=== PATIENT | female | born 1960 | race Caucasian/White ===

== ENCOUNTER 2024-04-27 06:55 | Emergency (ER) | payer OTHER, SELFPAY ==
[2024-04-27 07:06] VITALS: BP 119/65; PULSE 82; RESP 16; TEMP 36; O2SAT 98; BMI 32.8
--- NOTE | 2024-04-27 07:43 | ED.GENADULT ---
HPI - General Adult General Chief complaint: Weakness <Mook Pimentel MD - Last Filed: 04/27/24 07:46> Stated complaint: Weakness, feels faint, fatigue, cold Sx 2wks <Mook Pimentel MD - Last Filed: 04/27/24 07:46> Time Seen by Provider: 04/27/24 06:58 <Mook Pimentel MD - Last Filed: 04/27/24 07:46> History of Present Illness HPI narrative: Patient is a 63-year-old woman who comes in today with several days of general malaise body aches fatigue nonproductive cough and weakness. She states that her symptoms have been worsening since starting chlorthalidone which she is held. She is also on candesartan for blood pressure control. She has had no hemoptysis no overt fevers chills nausea or vomiting. 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 <Mook Pimentel MD - Last Filed: 04/27/24 07:46> Related Data Home medications: Home Medications ?Medication ?Instructions ?Recorded ?Confirmed albuterol 90 mcg/actuation aerosol mcg inhalation 04/27/24 inhaler bupropion HCl 100 mg tablet 450 mg PO DAILY 04/27/24 04/27/24 rvyvegfjfh-ypepjpkjeqhky-soowdvad 1 cap PO Q6H PRN 04/27/24 04/27/24 50 mg-325 mg-40 mg capsule (Esgic) candasortan 16 mg PO DAILY 04/27/24 04/27/24 chloratadone 25 mg PO DAILY 04/27/24 04/27/24 estradiol 1 mg tablet 1.5 mg PO DAILY 04/27/24 04/27/24 fluicasone 100 mcg inhalation DAILY 04/27/24 04/27/24 gabapentin 300 mg capsule 300 mg PO QHS 04/27/24 04/27/24 hydroxazine 25 mg PO .PRN 04/27/24 04/27/24 methocardiol 750 mg PO PRN 04/27/24 omeprazole 40 mg capsule,delayed 40 mg PO DAILY 04/27/24 04/27/24 release rosuvastatin 10 mg tablet (Crestor) 10 mg PO DAILY 04/27/24 04/27/24 singular 10 mg PO .pm 04/27/24 04/27/24 <Mook Pimentel MD - Last Filed: 04/27/24 07:46> Allergies/adverse reactions: Allergies Allergy/AdvReac Type Severity Reaction Status Date / Time No Known Drug Allergies Allergy Verified 04/27/24 07:18 <Mook Pimentel MD - Last Filed: 04/27/24 07:46> Review of Systems Status of ROS: Reports: 10 or more systems reviewed and unremarkable except as noted in History and below <Mook Pimentel MD - Last Filed: 04/27/24 07:46> [facility] Medical History: Medical History Chronic back pain ?M54.9 - Dorsalgia, unspecified (ICD-10) ?G89.29 - Other chronic pain (ICD-10) Restless leg syndrome ?G25.81 - Restless legs syndrome (ICD-10) Cervical endometriosis ?N80.00 - Endometriosis of the uterus, unspecified (ICD-10) Anxiety and depression ?F41.9 - Anxiety disorder, unspecified (ICD-10) ?F32.A - Depression, unspecified (ICD-10) Hypertension ?I10 - Essential (primary) hypertension (ICD-10) Atelectasis, bilateral ?J98.11 - Atelectasis (ICD-10) COVID ?U07.1 - COVID-19 (ICD-10) <Mook Pimentel MD - Last Filed: 04/27/24 07:46> Surgical History: Surgical History History of hysterectomy ?Z90.710 - Acquired absence of both cervix and uterus (ICD-10) <Mook Pimentel MD - Last Filed: 04/27/24 07:46> Social History: Social History Smoking Status: Never smoker Do you use any of these nicotine containing products: None How often do you have a drink containing alcohol: monthly or less How often do you have six or more drinks on one occasion: Less than monthly AUDIT-C Alcohol total score: 2 Non-prescribed substance use: denies use <Mook Pimentel MD - Last Filed: 04/27/24 07:46> Exam Narrative: Exam Narrative: EXAM GENERAL: Patient appears comfortable and well. EYES: No scleral icterus. LYMPH: No supraclavicular or cervical lymphadenopathy. SKIN: Visible skin seen during exam normal or with benign process only. EXT: No dependent lower extremity pedal edema. HEART: Regular rate and rhythm with no murmurs, rubs, or gallops. LUNGS: Clear to auscultation bilaterally with no crackles or wheezes. ABD: Soft, non tender, non distended. PSYCH: Good eye contact, speech is not pressured. <Mook Pimentel MD - Last Filed: 04/27/24 07:46> Const: Vital Signs, click to edit/add: Vital Signs - 24 hr 04/27/24 07:06 Temperature 96.8 F L Pulse Rate [Pulse Oximeter] 82 Respiratory Rate 16 Blood Pressure [Ri ght Upper Arm] 119/65 Pulse Oximetry 98 Oxygen Delivery Me thod Room Air <Mook Pimentel MD - Last Filed: 04/27/24 07:46> Vital Signs, click to edit/add: Vital Signs - 24 hr 04/27/24 07:06 Temperature 96.8 F L Pulse Rate [Pulse Oximeter] 82 Respiratory Rate 16 Blood Pressure [Ri ght Upper Arm] 119/65 Pulse Oximetry 98 Oxygen Delivery Me thod Room Air <Amado Kramer MD - Last Filed: 05/01/24 14:34> Course Course ED Course: Will begin evaluation with a viral swab CBC basic metabolic panel D-dimer troponin EKG chest x-ray and reassess. <Mook Pimentel MD - Last Filed: 04/27/24 07:46> Vital Signs Vital signs: Initial Vital Signs Temperature 96.8 F L 04/27/24 07:06 Temperature Source Temporal Artery Scan 04/27/24 07:06 Pulse Rate 82 04/27/24 07:06 Respiratory Rate 16 04/27/24 07:06 Blood Pressure 119/65 04/27/24 07:06 Blood Pressure Mean 83 04/27/24 07:06 Blood Pressure Position Sitting 04/27/24 07:06 Pulse Oximetry 98 04/27/24 07:06 Oxygen Delivery Method Room Air 04/27/24 07:06 Vital Signs Temperature 96.8 F L 04/27/24 07:06 Pulse Rate 82 04/27/24 07:06 Respiratory Rate 16 04/27/24 07:06 Blood Pressure 119/65 04/27/24 07:06 Pulse Oximetry 98 04/27/24 07:06 Oxygen Delivery Method Room Air 04/27/24 07:06 Temperature 96.8 F L 04/27/24 07:06 Pulse Rate 82 04/27/24 09:06 Respiratory Rate 18 04/27/24 09:06 Blood Pressure 122/69 04/27/24 09:06 Pulse Oximetry 98 04/27/24 07:06 Oxygen Delivery Method Room Air 04/27/24 09:06 <Mook Pimentel MD - Last Filed: 04/27/24 07:46> Initial Vital Signs Temperature 96.8 F L 04/27/24 07:06 Temperature Source Temporal Artery Scan 04/27/24 07:06 Pulse Rate 82 04/27/24 07:06 Respiratory Rate 16 04/27/24 07:06 Blood Pressure 119/65 04/27/24 07:06 Blood Pressure Mean 83 04/27/24 07:06 Blood Pressure Position Sitting 04/27/24 07:06 Pulse Oximetry 98 04/27/24 07:06 Oxygen Delivery Method Room Air 04/27/24 07:06 Vital Signs Temperature 96.8 F L 04/27/24 07:06 Pulse Rate 82 04/27/24 07:06 Respiratory Rate 16 04/27/24 07:06 Blood Pressure 119/65 04/27/24 07:06 Pulse Oximetry 98 04/27/24 07:06 Oxygen Delivery Method Room Air 04/27/24 07:06 Temperature 96.8 F L 04/27/24 07:06 Pulse Rate 82 04/27/24 09:06 Respiratory Rate 18 04/27/24 09:06 Blood Pressure 122/69 04/27/24 09:06 Pulse Oximetry 98 04/27/24 07:06 Oxygen Delivery Method Room Air 04/27/24 09:06 <Amado Kramer MD - Last Filed: 05/01/24 14:34> Medical Decision Making MDM Narrative Medical decision making narrative: Williams -- received this patient at change of shift pending labs. Sodium returns at 129. Is also influenza A positive. Hyponatremia is not necessarily a surprise as I discussed lab results with her. This might be medication effect. See patient discharge plan for further discussion <Amado Kramer MD - Last Filed: 05/01/24 14:34> Lab Data Lab results reviewed: Yes I reviewed the patient's lab results <Amado Kramer MD - Last Filed: 05/01/24 14:34> Labs: Lab Results 04/27/24 04/27/24 Range/Units 08:04 Unknown D-Dimer Quant (PE/DVT) 0.39 (0.00-0.50) ug/ml Sodium 129 L (135-149) mmol/L Potassium 3.4 L (3.6-5.1) mmol/L Chloride 87 L (96-114) mmol/L Carbon Dioxide 34 H (20-32) mmol/L Anion Gap 8 (7-15) mEq/L BUN 20 (7-30) mg/dL Creatinine 0.9 (0.5-1.5) mg/dL Estimated Creat Clear 54.61 Estimated GFR 72 ml/min Glucose 103 (60-115) mg/dL Calcium 10.4 (8.4-10.6) mg/dL Troponin I < 0.01 L (0.01-0.04) ng/mL SARS-CoV-2 (PCR) Negative SARS-CoV-2 (Negative) Influenza Type A (PCR) POSITIVE PCR FLU A A (Negative) Influenza Type B (PCR) Negative PCR FLU B (Negative) RSV (PCR) Negative PCR RSV (Negative) <Mook Pimentel MD - Last Filed: 04/27/24 07:46> Lab Results 04/27/24 04/27/24 Range/Units 08:04 Unknown D-Dimer Quant (PE/DVT) 0.39 (0.00-0.50) ug/ml Sodium 129 L (135-149) mmol/L Potassium 3.4 L (3.6-5.1) mmol/L Chloride 87 L (96-114) mmol/L Carbon Dioxide 34 H (20-32) mmol/L Anion Gap 8 (7-15) mEq/L BUN 20 (7-30) mg/dL Creatinine 0.9 (0.5-1.5) mg/dL Estimated Creat Clear 54.61 Estimated GFR 72 ml/min Glucose 103 (60-115) mg/dL Calcium 10.4 (8.4-10.6) mg/dL Troponin I < 0.01 L (0.01-0.04) ng/mL SARS-CoV-2 (PCR) Negative SARS-CoV-2 (Negative) Influenza Type A (PCR) POSITIVE PCR FLU A A (Negative) Influenza Type B (PCR) Negative PCR FLU B (Negative) RSV (PCR) Negative PCR RSV (Negative) <Amado Kramer MD - Last Filed: 05/01/24 14:34> Discharge Plan Discharge Clinical Impression: Influenza A, Hyponatremia <Mook Pimentel MD - Last Filed: 04/27/24 07:46> Patient Disposition: Home, Self-Care <Mook Pimentel MD - Last Filed: 04/27/24 07:46> Condition: Stable <Mook Pimentel MD - Last Filed: 04/27/24 07:46> Instructions: Hyponatremia (ED), Influenza (DC) <Mook Pimentel MD - Last Filed: 04/27/24 07:46> Additional Instructions: Focus on hydration. Ibuprofen, acetaminophen. Would follow up lab results for recheck maybe in a couple of weeks. Prescribing Tamiflu from [facility]. <Mook Pimentel MD - Last Filed: 04/27/24 07:46> Prescriptions: No Action chloratadone 25 mg PO DAILY candasortan 16 mg PO DAILY bupropion HCl 100 mg tablet 450 mg PO DAILY fluicasone 100 mcg inhalation DAILY singular 10 mg PO .pm omeprazole 40 mg capsule,delayed release(DR/EC) 40 mg PO DAILY gabapentin 300 mg capsule 300 mg PO QHS rosuvastatin [Crestor] 10 mg tablet 10 mg PO DAILY albuterol 90 mcg/actuation aerosol inhalation estradiol 1 mg tablet 1.5 mg PO DAILY Rx Instructions: off 1 week; repeat cycle hydroxazine 25 mg PO .PRN [id number]-[id number]-fqfj [Esgic] 50-325-40 mg capsule 1 cap PO Q6H PRN methocardiol 750 mg PO PRN Patient Comments: muscle spams <Mook Pimentel MD - Last Filed: 04/27/24 07:46> Follow Up/Referrals: Provider,Not a Local [Primary Care Provider] - <Mook Pimentel MD - Last Filed: 04/27/24 07:46> Stand Alone Forms: [facility] Info Instructions <Mook Pimentel MD - Last Filed: 04/27/24 07:46>
--- NOTE | 2024-04-27 07:46 | CRLHL7_ITS ---
For Patients: As a result of the Century Cures Act, medical imaging exams and procedure reports are released immediately into your electronic medical record. You may view this report before your referring provider. If you have questions, please contact your health care provider. Indication: Cough. Technique: Two view(s) of the chest. Comparison: None available. Findings: Normal cardiomediastinal silhouette and pulmonary vasculature. Lungs are well inflated and clear. No focal consolidation, pleural effusion or pneumothorax. No acute osseous abnormality. Right upper quadrant surgical clips. Impression: No acute cardiopulmonary abnormality identified. Dictated by Anahi Norton MD @ 04/27/2024 8:13:00 AM (Electronically Signed)
--- OUTSIDE RECORDS SUMMARY | 2024-04-27 08:01 | XMS_ITS | Clinical Summary ---
Author Organization [facility] Address [address] [place] [id number] Care Team Providers Care Wallpaper Printer Name Role Phone Melba Calderon MD Unavailable [phone] Terrance Bass MD Unavailable [phone] Judson Crowder MD Unavailable Woo Hicks PA-C Primary Care Provider Annemarie Moon MD Unavailable Annemarie Moon MD Unavailable [phone] Allergies Active Allergy Reactions Criticality Noted Date Comments Lisinopril Cough 12/12/2012 Losartan Other (See Comments) 12/12/2012 Insomnia Insomnia Suture 03/31/2010 Medications Medication Sig Dispensed Refills Start Date End Date Status albuterol (ALBUTEROL) 108 (90 BASE) MCG/ACT inhalerIndications:I ntermittent asthma,Major depression in complete remission (H),Headache(784.0), Allergic rhinitis, cause unspecified,Hypercho lesterolemia,Esophag eal reflux,Symptomatic menopausal or female climacteric states,Sciatica,Rout ine general medical examination at a health care facility,Hyperlipide kimi LDL goal <130,Benign hypertension,Need for mhlovsmpvp-wckingi-z ertussis (Tdap) vaccine, adult/adolescent,Uns pecified episodic mood disorder,Obesity Inhale 1-2 puffs into the lungs every 4 hours as needed 1 Inhaler 11 07/03/2013 Active Respiratory Therapy Supplies (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 Active vilazodone (VIIBRYD) 20 MG TABS tablet Take 20 mg by mouth daily. 01/17/2023 Active albuterol (PROAIR HFA/PROVENTIL HFA/VENTOLIN HFA) 108 (90 Base) MCG/ACT inhalerIndications:M ild intermittent asthma without complication Inhale 2 puffs into the lungs every 6 hours as needed for shortness of breath, wheezing or cough 18 g 3 06/30/2023 Active buPROPion (WELLBUTRIN XL) 300 MG 24 hr tabletIndications:Re current major depressive disorder, in full remission (H) Take 1 tablet (300 mg) by mouth daily 90 tablet 3 06/30/2023 Active estradiol (ESTRACE) 1 MG tabletIndications:Sy mptomatic menopausal or female climacteric states Take 1.5 tablets (1.5 mg) by mouth daily 135 tablet 06/30/2023 Active clindamycin (CLEOCIN T) 1 % external lotion APPLY A THIN LAYER TO AFFECTED AREA ON FACE AND TRUNK 1-2X DAILY, ONGOING. 09/11/2023 Active metroNIDAZOLE (METROCREAM) 0.75 % external cream APPLY A THIN LAYER TO AFFECTED AREA 1-2X DAILY, ONGOING. 08/21/2023 Active rosuvastatin (CRESTOR) 10 MG tabletIndications:Hy perlipidemia LDL goal <130 Take 1 tablet (10 mg) by mouth daily 90 tablet 3 03/02/2024 Active butalbital-acetamino phen-caffeine (ESGIC) 50-325-40 MG tabletIndications:Ep isodic tension-type headache, not intractable Take 1 tablet by mouth every 4 hours as needed for pain 60 tablet 03/02/2024 Active chlorthalidone (HYGROTON) 25 MG tabletIndications:Be nign hypertension Take 1 tablet (25 mg) by mouth daily. 90 tablet 1 03/28/2024 Active fluticasone (ARNUITY ELLIPTA) 100 MCG/ACT inhalerIndications:M ild intermittent asthma without complication Inhale 1 puff into the lungs daily. 3 each 3 03/28/2024 Active montelukast (SINGULAIR) 10 MG tabletIndications:Mi ld intermittent asthma without complication,Seasona l allergic rhinitis due to other allergic trigger Take 1 tablet (10 mg) by mouth at bedtime. 90 tablet 3 03/28/2024 Active methocarbamol (ROBAXIN) 750 MG tabletIndications:Bi lateral sciatica Take 1 tablet (750 mg) by mouth nightly as needed for muscle spasms. 90 tablet 03/28/2024 Active candesartan (ATACAND) 16 MG tabletIndications:Be nign hypertension Take 1 tablet (16 mg) by mouth daily. 90 tablet 1 03/28/2024 Active omeprazole (PRILOSEC) [address] capsuleIndications:G astroesophageal reflux disease with esophagitis without hemorrhage Take 1 capsule (40 mg) by mouth daily. 90 capsule 3 03/28/2024 Active gabapentin (NEURONTIN) 300 MG capsuleIndications:R estless legs syndrome (RLS) Take 1 capsule (300 mg) by mouth daily. 90 capsule 3 03/28/2024 Active buPROPion (WELLBUTRIN XL) 150 MG 24 hr tabletIndications:Re current major depressive disorder, in full remission (H) Take 1 tablet (150 mg) by mouth every morning. In addition to 300mg for a total of 450mg total 90 tablet 03/28/2024 Active Active Problems Problem Noted Date Diagnosed Date LLUVIA (generalized anxiety disorder) 05/14/2022 History of COVID-19 07/29/2020 COVID-19 virus infection 06/25/2020 Overview: COVID Pneumonia per CT Chest 06/16/20. Advised to repeat imaging in 3-6 months. Malignant neoplasm of skin 09/08/2016 Overview: Right upper chest, BCC Mohs 2011 Anxiety 06/18/2015 Menopausal state 02/26/2014 Plantar fasciitis 01/04/2014 Cataract 08/07/2013 Benign hypertension 11/03/2012 Obesity 02/04/2012 Intermittent asthma 07/01/2011 Major depressive disorder, recurrent episode, mo derate 07/07/2010 Shoulder impingement syndrome 05/18/2010 Overview: S/p right shoulder subacromial decompression and acromioclavicular joint resection DOS 04/08/10 HYPERLIPIDEMIA LDL GOAL <130 05/17/2010 Hypercholesterolemia 07/27/2009 Backache 10/25/2006 Overview: Problem list name updated by automated process. Provider to review Displacement of lumbar inter vertebral disc without myelopathy 11/11/2005 Overview: Right L4-5 microdiskectomy Mastodynia 08/07/2002 Allergic rhinitis Overview: Problem list name updated by automated process. Provider to review Esophageal reflux Resolved Problems Problem Noted Date Diagnosed Date Resolved Date MDD (recurrent major depress belkis disorder) in remission 07/29/2020 05/15/2022 Neck pain 12/21/2012 02/15/2013 Sciatica 10/25/2006 07/07/2010 Headache 08/07/2002 02/15/2013 Overview: Problem list name updated by automated process. Provider to review Depressive disorder, not elsewhere classified 08/07/19 03 07/07/2010 Encounters Date Type Department Care Team Description 04/26/2024 MyC Medical Advice [facility] [address] [place] [phone] Woo Hicks PA-C Medication Question 03/28/2024 8:00 AM CDT Office Visit [facility] [address] [place] [address] [address] [place] [phone] Woo Hicks PA-C Recurrent major depressive disorder, in full remission (H); Benign hypertension; Mild intermittent asthma without complication; Seasonal allergic rhinitis due to other allergic trigger; Gastroesophageal reflux disease with esophagitis without hemorrhage; Bilateral sciatica; Restless legs syndrome (RLS) 03/28/2024 Travel 03/23/2024 Refill [facility] [address] [place] [address] [address] [place] [phone] Woo Hicks PA-C Medication Refill 03/22/2024 Refill [facility] [address] [address] [place] [phone] Woo Hicks PA-C Medication Refill 03/21/2024 12:34 PM CDT - 03/21/2024 11:59 PM CDT Hospital Encounter [facility] [address] [place] [phone] Annemarie Moon MD Chest pain, unspecified type; Elevated blood pressure reading with diagnosis of hypertension; 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 (H) Discharge Disposition: Home or Self Care 03/21/2024 Travel 03/08/2024 12:50 PM CDT Office Visit [facility] [address] [place] [phone] Annemarie Moon MD Chest pain, unspecified type; Elevated blood pressure reading with diagnosis of hypertension; 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 (H) 03/08/2024 Travel 03/03/2024 Travel 03/02/2024 8:00 AM CDT Office Visit [facility] [address] [place] [address] [place] [phone] Woo Hicks PA-C Need for vaccination (Primary Dx); Episodic tension-type headache, not intractable; Benign hypertension; Hyperlipidemia LDL goal <130 03/02/2024 Travel 02/29/2024 2:49 PM CDT - 02/29/2024 11:59 PM CDT Hospital Encounter [facility] [address] [place] [phone] Woo Hicks PA-C Chest pain, unspecified type; Elevated blood pressure reading with diagnosis of hypertension Discharge Disposition: Home or Self Care 02/29/2024 Travel 02/28/2024 Telephone [facility] [address] [facility] [address] [place] [phone] Unknown, Provider Appointment ([facility] or [facility] ) 02/27/2024 1:21 PM CDT - 02/27/2024 5:05 PM CDT Emergency [facility] [address] [place] [phone] Sobia Guzman MD Chest pain, unspecified type; Hepatic steatosis; Elevated blood pressure reading with diagnosis of hypertension Discharge Disposition: Home or Self Care 02/27/2024 Travel 02/27/2024 Telephone [facility] [address] [place] [phone] None Chest Pain 02/18/2024 Refill [facility] [address] [place] [address] [address] [place] [phone] Woo Hicks PA-C Medication Refill from Last 3 Months Immunizations Name Administration Dates Next Due COVID-19 MONOVALENT 12+ (Pfizer) 04/20/2021,07/18,07/14/2020 Flu, Unspecified 03/04/2016, 5,04/10/2012,2010,05/18/2010,05/07/2009,04/17/2007,1 [id number] Novel Flu- Nasal 05/07/2009 Influenza (H1N1) 05/07/2009 Influenza (IIV3) PF 04/10/2012, 1,05/18/2010,2008,04/17/2007,05/01/1992 Influenza Intranasal Vaccine 05/07/2009 Influenza Vaccine >6 months,quad, PF 06/2023,03/06/2020,04/10/2018,2016,03/09/2016,04/17/2015,04/10/2012,1 ,05/18/2010,05/07/2009, 007,05/01/1992 Influenza Vaccine, 6+MO IM (QUADRIVALENT W/PRESERVATIVES) 03/06/2020,04/17/2019 Influenza, seasonal, injectable, PF 05/04/2022 Mantoux Tuberculin Skin Test 11/08/2005,11/09/19 06 Pneumococcal 20 valent Conju gate (Prevnar 20) 02/02/2022,01/28/2022 TD,PF 7+ (Tenivac) 10/25/2006 TDAP (Adacel,Boostrix) 03/02/2024,02/26/2014 TDAP Vaccine (Adacel) 07/03/2013 Td (Adult), Adsorbed 10/25/2006 Zoster recombinant adjuvante d (SHINGRIX) 04/10/2018,01/02/2018 Family History Medical History Relation Comments C.A.D. Brother 1 Heart Disease Brother 2 mi C.A.D. Brother 3 Hyperlipidemia Brother 4 Hypertension Brother 4 Cerebrovascular Disease Father EYE* Father Heart Disease Father 8 vessel bypass Hyperlipidemia Father Hypertension Father Psychotic Disorder Maternal Grandmother depressi on Cancer Mother gastric Hyperlipidemia Mother Hypertension Mother Neurologic Disorder Mother polio Hyperlipidemia Sister 1 Hypertension Sister 1 Myocardial Infarction Sister 1 No Known Problems Sister 2 Relation Status Comments Brother 1 Brother 2 Alive Brother 3 Alive Brother 4 Alive Father Maternal Grandmother Mother Sister 1 Alive Sister 2 Alive Social History Tobacco Use Types Packs/Day Years Used Date Smoking Tobacco: Never Passive Smoke Exposure: Past Smokeless Tobacco: Never Tobacco Cessation:Counseling Given: Not Answered Alcohol Use Standard Drinks/Week Comments Yes 1.7 (1 standard drink = 0.6 oz p ure alcohol) rare PHQ-2 Answer Date Recorded PHQ-2 Score 3 03/28/2024 Adolescent Education Answer Date Record ed Getting School Help Needed Not on file 04/12 Sex and Gender Information Value Date Recorded Sex Assigned at Not on file Gender Identity Not on file Sexual Orientation Not on file Last Filed Vital Signs Vital Sign Reading Time Taken Comments Blood Pressure 112/72 03/28/2024 8:06 AM CDT Pulse 76 03/28/2024 8:06 AM CDT Temperature 36.3 ??C (97.4 ??F) 03/28/2024 8:06 AM CD T Respiratory Rate 20 03/28/2024 8:06 AM CDT Oxygen Saturation 97% 03/08/2024 12:43 PM CDT Inhaled Oxygen Concentration - - Weight 91.6 kg (202 lb) 03/28/2024 8:06 AM CDT Height 167.6 cm (5' 6) 03/28/2024 8:06 AM CDT Body Mass Index 32.6 03/28/2024 8:06 AM CDT Plan of Treatment Health Maintenance Due Date Last Done Comments ANNUAL REVIEW OF HM ORDERS 1961 CT COLONOGRAPHY 1961 FIT 1961 FLEX SIG 1961 sDNA (Cologuard) 1961 HIV SCREENING 1976 HEPATITIS C SCREENING 1979 YEARLY PREVENTIVE VISIT 07/03/2014 07/03/20 13, 07/07/2010, 05/13/2009, Additional history exists COVID-19 Vaccine ( season) 2024 01/28/2022, 04/20/2021, 08/01/2020, Additional history exists INFLUENZA VACCINE (#1) 2024 , 05/04/2022, 03/06/2020, Additional history exists ASTHMA ACTION PLAN 06/30/2024 06/30/2023, 0 11/28/2012, 04/10/2012 RSV VACCINE (1 - Risk 60-74 years 1-dose series) 06/30/2024 Postponed fro m 2021 (Other) MAMMO SCREENING 07/15/2024 07/15/2023, 12/16, 12/30/2021, Additional history exists ASTHMA CONTROL TEST 09/25/2024 03/28/2024, 06/30/2023, 06/25/2022, Additional history exists PHQ-9 09/25/2024 03/28/2024, 06/17, 10/29/2022, Additional history exists LIPID 03/08/2025 03/08/2024, 06/18, 07/03/2013, Additional history exists BMP 03/28/2025 03/28/2024, 02/16, 02/27/2024, Additional history exists GLUCOSE 03/28/2027 03/28/2024, 02/16, 02/27/2024, Additional history exists ADVANCE CARE PLANNING 06/17/2027 06/17/2022, 022 COLONOSCOPY 06/29/2029 06/29/2022, 04/28/2012 COLORECTAL CANCER SCREENING 06/29/2029 DTAP/TDAP/TD IMMUNIZATION (4 - Td or Tdap) 03/02/2034 03/02/2024, 02/26/2014, 07/03/2013, Additional history exists PAP Discontinued 01/06/2004, 06/10/1987 MIGRAINE ACTION PLAN Completed 04/10/2012 DEPRESSION ACTION PLAN Completed 11/28/2012 ZOSTER IMMUNIZATION Completed 04/10/2018, 8 Pneumococcal Vaccine: Pediatrics (0 to 5 Years) and At-Risk Patients (6 to 64 Years) Completed 02/02/2022, 01/28/2022 HPV IMMUNIZATION Aged Out No longer e ligible based on patient's age to complete this topic MENINGITIS IMMUNIZATION Aged Out No l onger eligible based on patient's age to complete this topic RSV MONOCLONAL ANTIBODY Aged Out No l onger eligible based on patient's age to complete this topic Procedures Procedure Name Priority Date/Time Associated Diagnosis Comments BASIC METABOLIC PANEL (BFP) Routine 03/28/2024 11:30 AM CDT Benign hypertension UT COLLECTION VENOUS BLOOD VENIPUNCTURE Routine 03/28/2024 8:55 AM CDT Benign hypertension CT CORONARY ARTERY ANGIO W CALCIUM SCORE STAT 03/21/2024 1:38 PM CDT Chest pain, unspecified type Elevated blood pressure reading with diagnosis of hypertension 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 (H) RADIOLOGIST CONSULT FOR CARDIOLOGY STAT 03/21/2024 1:38 PM CDT Chest pain, unspecified type Elevated blood pressure reading with diagnosis of hypertension 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 (H) TSH WITH FREE T4 REFLEX Routine 03/08/2024 1:30 PM CDT Elevated blood pressure reading with diagnosis of hypertension 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 (H) LIPID REFLEX TO DIRECT LDL PANEL Routine 03/08/2024 1:30 PM CDT Elevated blood pressure reading with diagnosis of hypertension 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 (H) BASIC METABOLIC PANEL Routine 03/08/2024 1:30 PM CDT Elevated blood pressure reading with diagnosis of hypertension 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 (H) ECHO COMPLETE YUE 02/29/2024 3:49 PM CDT Chest pain, unspecified type Elevated blood pressure reading with diagnosis of hypertension TROPONIN T, HIGH SENSITIVITY STAT 02/27/2024 3:[address] AORTIC SURVEY W CONTRAST STAT 02/27/2024 3:33 PM CDT EKG 12-LEAD, TRACING ONLY STAT 02/27/2024 1:46 PM CDT CBC WITH PLATELETS & DIFFERENTIAL STAT 02/27/2024 1:30 PM CDT CBC WITH PLATELETS AND DIFFERENTIAL STAT 02/27/2024 1:30 PM CDT TROPONIN T, HIGH SENSITIVITY STAT 02/27/2024 1:30 PM CDT BASIC METABOLIC PANEL STAT 02/27/2024 1:30 PM CDT EXTRA PURPLE TOP TUBE STAT 02/27/2024 1:30 PM CDT EXTRA GREEN TOP (LITHIUM HEPARIN) TUBE STAT 02/27/2024 1:30 PM CDT EXTRA RED TOP TUBE STAT 02/27/2024 1: 30 PM CDT EXTRA BLUE TOP TUBE STAT 02/27/2024 1 :30 PM CDT EXTRA TUBE STAT 02/27/2024 1:30 PM CDT EKG 12-LEAD COMPLETE W/READ - CLINICS Routine 02/27/2024 12:27 PM CDT Chest pain MA SCREENING BILATERAL W/ JEROME Routine 07/15/2023 Encounter for screening mammogram for breast cancer ASTHMA ACTION PLAN Routine 06/30/2023 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 Mild intermittent asthma without complication COLONOSCOPY Routine 04/28/2012 HCL PAP THIN LAYER SCREEN Routine 01/06/2004 12:00 AM CDT Routine Medical Exam Headache Depressive Disorder Nec Precordial Pain Mastodynia from Last 3 Months or Most Recently Relevant to Health Maintenance Results * (ABNORMAL) Basic Metabolic Panel (BFP) (03/28/2024 11:30 AM CDT) Carbon Dioxide 29.8 20 - 32 mmol/L BFP INTERNAL Creatinine 1.00 0.60 - 1.30 mg/dL BFP INTERNAL Glucose 95 60 - 99 mg/dL BFP INTERNAL Sodium 134.9(A) 135 - 146 mmol/L BFP INTERNAL Comment:ran twice Potassium 3.82 3.5 - 5.3 mmol/L BFP INTERNAL Chloride 98.1 98 - 110 mmol/L BFP INTERNAL Urea Nitrogen 17 7 - 25 mg/dL BFP INTERNAL Calcium 10.0 8.6 - 10.3 mg/dL BFP INTERNAL BUN/Creatinine Ratio 17 6 - 32 BFP INTERNAL Blood 03/28/2024 11:3 0 AM CDT Woo Hicks PA-C LAB - NON-BEAKER BLO OD LABS BFP INTERNAL * Radiologist Consult For Cardiology (03/21/2024 1:38 PM CDT) Anatomical Region Laterality Modality Computed Tomogra phy, Ultrasound 03/21/2024 1:38 PM CDT Impressions 03/21/2024 1:49 PM CDT IMPRESSION: ?? 1. ??Hepatic steatosis. 2. ??Please refer to professional shopper's dictation for the cardiac CT report. 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 COMPARISON: CT 02/27/2024 FINDINGS: ?? LIMITED CHEST: Bilateral dependent atelectasis. LIMITED MEDIASTINUM: Negative. LIMITED UPPER ABDOMEN: Hepatic steatosis. Procedure Note Johann Nguyen MD - 03/21/2024 OVERREAD: DETAILED [facility] RADIOLOGY EXTRACARDIAC OVERREAD OF CARDIAC CT LOCATION: [facility] DATE: 03/21/2024 INDICATION: Chest pain, unspecified type, Elevated blood pressure readingwith diagnosis of hypertension, Coronary artery disease involving nativecoronary artery 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 (H24) TECHNIQUE: Dose reduction techniques were used. COMPARISON: CT 02/27/2024 FINDINGS: LIMITED CHEST: Bilateral dependent atelectasis. LIMITED MEDIASTINUM: Negative. LIMITED UPPER ABDOMEN: Hepatic steatosis. IMPRESSION: 1. Hepatic steatosis. 2. Please refer to professional shopper's dictation for the cardiac CT report. Annemarie Moon MD IMG DIAGNOSTIC IMAGI NG ORDERABLES * CT Coronary Artery Angio w Calcium Score (03/21/2024 1:38 PM CDT) Agatston Score of Left Main 0 RADIANT Agatston Score of the Left Anterior Descending 4 RADIANT Agatston Score of Circumflex 0 RADIANT Agatston Score of Right Coronary Artery 0 RADIANT Total Score 4.00 RADIANT BSA 0.00 m2 RADIANT Anatomical Region Laterality Modality Chest, SUBRAD CT BODY, UMP CT CHEST Computed Tomography, Ultrasound Narrative 03/21/2024 2:35 PM CDT A calcium score in this range places the individual in the 25th percentile when compared to an age and gender matched control group and implies a low risk of cardiac events in the next ten years (less than 1% per year). Angiography: LM normal LAD normal Circ normal RCA normal Non coronary: Normal LV size, function and no WMA No mass/thrombus in GLORIA, LV or PA Normal aortic valve Normal aorta Normal pericardium Imp Normal coronary artery anatomy Calcuim score 4 [address] the individual in the 25th percentile when compared to an age and gender matched control group and implies a low risk of cardiac events in the next ten years (less than 1% per year). Technical Details TECHNIQUE: {CCTA TECHNICAL DETAILS GATING METHOD HE} gated CT scanning of the heart with and without intravenous contrast was performed on a Siemens Definition Flash CT scanner Isovue 370. Sequential scanning was performed for coronary calcium evaluation. Spiral protocol for coronary CT angiography was performed after administering 0.4mg of sublingual nitroglycerin. 63. Pulse range 50% - 70% of the cardiac phase. The imaging protocol was individualized to minimize radiation exposure. Image post processing was performed on a [employer] workstation. This study was performed after discussion of the goals, risk benefits and alternatives of the procedure. Risks discussed included the risk of contrast injection and diagnostic x-ray exposure. The best reconstructions were obtained at 71% of the diastolic phase and 45% of the systolic phase. Left Ventricle Normal left ventricular cavity size, wall thickness, mass and shape. Right Ventricle Normal cavity size. Left Atrium No left atrial mass or thrombus.Normal cavity size. Patent foramen ovale not present. No interatrial septal defect present. Right Atrium Normal cavity size. Mitral Valve Normal valve structure. Aortic Valve Tricuspid aortic valve. Pulmonic Valve Normal valve structure. Pulmonary Artery Normal pulmonary artery and venous anatomy. All pulmonary veins draining into the left atrium. Noncardiac Please note: Radiology review for incidental non cardiac findings will be under separate report by the radiologist. Calcium Scoring The total Agatston score is 4. A calcium score in this range places the individual in the 25th percentile when compared to an age and gender matched control group and implies a low risk of cardiac events in the next ten years (less than 1% per year). Coronary Findings Diagnostic Dominance: Right Left Anterior Descending: Ost LAD to Mid LAD lesion has no luminal stenosis. Left Circumflex: Ost Cx to Dist Cx lesion has no luminal stenosis. Right Coronary Artery: Prox RCA to Dist RCA lesion has no luminal stenosis. Intervention No interventions have been documented. Calcium Score Additonal Info BACKGROUND A coronary artery calcium (CAC) score is a measurement of the amount of calcium (hard plaque) in the tomlin of the arteries that supply the heart muscle. Numerous studies have indicated that this test is a reliable measure of risk for adverse cardiovascular events, such as heart attack and stroke. MANAGEMENT The [place] [employer] [employer] (AHA/ACC) 2018 Guideline on the Management of Blood Cholesterol states: If CAC is zero, treatment with statin therapy may be withheld or delayed, except in certain very high-risk individuals such as cigarette smokers, those with diabetes mellitus, and those with a strong family history of premature atherosclerotic disease. A CAC score of 1 to 99 favors statin therapy, especially in those greater than or equal to 55 years of age. For any patient, if the CAC score is greater than or equal to100 Agatston units or greater than or equal to 75th percentile, statin therapy is indicated unless otherwise deferred by the outcome of clinician-patient risk discussion. The Society of Cardiovascular CT (SCCT) CAC guideline recommends the following: CAC score 0: statin is generally not recommended CAC score 1-99: moderate-intensity statin generally recommended CAC score 100-299: moderate to high-intensity statin + Aspirin 81mg CAC score >300: high intensity statin + Aspirin 81mg GENERAL RECOMMENDATIONS Adoption and maintenance of a healthy lifestyle is recommended for all people. This should include regular, appropriate exercise and observance of a proper diet, to ensure balanced nutrition and weight control. Tobacco use should be avoided. Cholesterol has been linked to coronary atherosclerosis, and we strongly encourage adhering to the recommendations of the 2018 ACC/AHA guidelines on the Management of Blood Cholesterol. For primary prevention, these include calculation of 10-year ASCVD risk and initiation of statin therapy based on estimated ASCVD risk and LDL cholesterol. The CRAVEN risk score, which combines traditional risk factors and CAC, is available online on the CRAVEN website (https://www.craven-nhlbi.org/MESACHDRisk/MesaRiskScore/RiskScore.aspx). (Marvin HAWKINS, et al. J Am Anette Cardiol. 2015 Apr 29;66(15):1643-53.) However, note that these are general recommendations only, and as with all such matters, the personal physician should be consulted regarding recommendations appropriate for the individual. If further guidance is needed, you can schedule an appointment with one of our Preventive Cardiologists ([email or web address]). References: 1. 2018 AHA/ACC/AACVPR/AAPA/ABC/ACPM/ADA/AGS/APhA/ASPC/NLA/PCNA Guideline on the Management of Blood Cholesterol 2. CAC-DRS: Coronary Artery Calcium Data and Reporting System. An expert consensus document of the Society of Cardiovascular Computed Tomography (SCCT) Annemarie Moon MD IMG CT ORDERABLES * TSH with free T4 reflex (03/08/2024 1:30 PM CDT) TSH 1.91 0.30 - 4.20 uIU/mL 03/08/2024 10:29 PM CDT [facility] Blood STRUCTURE OF LEFT UPPER LIMB / Unknown Venipuncture / Unknown 03/08/2024 1:30 PM CDT 03/08/2024 1:30 PM CDT Annemarie Moon MD LAB - BLOOD ORDERABL ES [facility] [place] [facility] [address] [facility], [address] [place] [id number] * (ABNORMAL) Lipid panel reflex to direct LDL Fasting (03/08/2024 1:30 PM CDT) Cholesterol 233(H) <200 mg/dL 03/08/2024 10:29 PM CDT [facility] Triglycerides 85 <150 mg/dL 03/08/2024 10:29 PM CDT [facility] Direct Measure HDL 105 >=50 mg/dL 03/08/2024 10:29 PM CDT [facility] LDL Cholesterol Calculated 111(H) <=100 mg/dL 03/08/2024 10:29 PM CDT [facility] Non HDL Cholesterol 128 <130 mg/dL 03/08/2024 10:29 PM CDT [facility] Patient Fasting > 8hrs? Yes 03/08/2024 10:29 PM CDT [facility] Blood STRUCTURE OF LEFT UPPER LIMB / Unknown Venipuncture / Unknown 03/08/2024 1:30 PM CDT 03/08/2024 1:30 PM CDT Narrative [facility] - 03/08/2024 10:29 PM CDT Cholesterol Desirable: ??<200 mg/dL Triglycerides Normal: ??Less than 150 mg/dL Borderline High: ??150-199 mg/dL High: ??200-499 mg/dL Very High: ??Greater than or equal to 500 mg/dL Direct Measure HDL Female: ??Greater than or equal to 50 mg/dL Male: ??Greater than or equal to 40 mg/dL LDL Cholesterol Desirable: ??<100mg/dL Above Desirable: ??100-129 mg/dL Borderline High: ??130-159 mg/dL High: ??160-189 mg/dL Very High: ??>= 190 mg/dL Non HDL Cholesterol Desirable: ??130 mg/dL Above Desirable: ??130-159 mg/dL Borderline High: ??160-189 mg/dL High: ??190-219 mg/dL Very High: ??Greater than or equal to 220 mg/dL Annemarie Moon MD LAB - BLOOD ORDERABL ES [facility] [address] [facility], [address] [address] * (ABNORMAL) Basic metabolic panel (03/08/2024 1:30 PM CDT) Only the most recent of2 resultswithin the time period is included. Sodium 139 135 - 145 mmol/L 03/08/2024 10:29 PM CDT [facility] Potassium 3.5 3.4 - 5.3 mmol/L 03/08/2024 10:29 PM CDT [facility] Chloride 97(L) 98 - 107 mmol/L 03/08/2024 10:29 PM CDT [facility] Carbon Dioxide (CO2) 29 22 - 29 mmol/L 03/08/2024 10:29 PM CDT [facility] Anion Gap 13 7 - 15 mmol/L 03/08/2024 10:29 PM CDT [facility] Urea Nitrogen 19.5 8.0 - 23.0 mg/dL 03/08/2024 10:29 PM CDT [facility] Creatinine 0.94 0.51 - 0.95 mg/dL 03/08/2024 10:29 PM CDT [facility] GFR Estimate 68 >60 mL/min/1.7 3m2 03/08/2024 10:29 PM CDT [facility] Comment:eGFR calculated usin 2020 CKD-EPI equation. Calcium 10.4 8.8 - 10.4 mg/dL 03/08/2024 10:29 PM CDT [facility] Comment:Reference intervals for this test were updated on 01/31/2024 to reflect our healthy population more accurately. There may be differences in the flagging of prior results with similar values performed with this method. Those prior results can be interpreted in the context of the updated reference intervals. Glucose 90 70 - 99 mg/dL 03/08/2024 10:29 PM CDT [facility] Patient Fasting > 8hrs? Yes 03/08/2024 10:29 PM CDT [facility] Blood STRUCTURE OF LEFT UPPER LIMB / Unknown Venipuncture / Unknown 03/08/2024 1:30 PM CDT 03/08/2024 1:30 PM CDT Annemarie Moon MD LAB - BLOOD ORDERABL ES [facility] Lab [address] [facility], [address] * ECHO COMPLETE (02/29/2024 3:49 PM CDT) LVEF 60-65% CARDIOLOGY RESULTS Anatomical Region Laterality Modality Echocardiography 02/29/2024 2:59 PM CDT Narrative 02/29/2024 4:00 PM CDT [id number]^NIGHAT^GENEVIEVE^RUDI [facility] [address] [place] [address] Name: JAMISON KING : 1960 Study Date: 02/29/2024 02:59 PM Age: 63 yrs Gender: Female Patient Location: [facility] Reason For Study: Chest pain, unspecified type, Elevated blood pressure reading wi Ordering Physician: GENEVIEVE DISLA Referring Physician: SOBIA GUZMAN Performed By: Ellen Oliveros BSA: 2.0 m2 Height: 66 in Weight: 205 lb HR: 71 Procedure Echocardiogram with two-dimensional, color and spectral Doppler performed. Interpretation Summary Global and regional left ventricular function is normal with an EF of 60-65%. Right ventricular function, chamber size, wall motion, and thickness are normal. Pulmonary artery systolic pressure cannot be assessed. No significant valvular abnormalities present. The inferior vena cava is normal. No pericardial effusion is present. There is no prior study for direct comparison. Left Ventricle Global and regional left ventricular function is normal with an EF of 60-65%. Left ventricular wall thickness is normal. Left ventricular size is normal. Left ventricular diastolic function is normal. No regional wall motion abnormalities are seen. Right Ventricle Right ventricular function, chamber size, wall motion, and thickness are normal. Atria Both atria appear normal. Mitral Valve The mitral valve is normal. Trace mitral insufficiency is present. Aortic Valve Aortic valve is normal in structure and function. Tricuspid Valve The tricuspid valve is normal. Trace tricuspid insufficiency is present. Pulmonary artery systolic pressure cannot be assessed. Pulmonic Valve The valve leaflets are not well visualized. On Doppler interrogation, there is no significant stenosis or regurgitation. Vessels The thoracic aorta is normal. The pulmonary artery cannot be assessed. The inferior vena cava is normal. Pericardium No pericardial effusion is present. Miscellaneous No significant valvular abnormalities present. Compared to Previous Study There is no prior study for direct comparison. MMode/2D Measurements & Calculations asc Aorta Diam: 3.3 cm Asc Ao diam index BSA (cm/m2): 1.6 Asc Ao diam index Ht(cm/m): 2.0 LA Volume (BP): 34.9 ml LA Volume Index (BP): 17.3 ml/m2 TAPSE: 1.9 cm Doppler Measurements & Calculations MV E max jagdish: 88.7 cm/sec MV A max jagdish: 80.0 cm/sec MV E/A: 1.1 MV dec time: 0.20 sec Ao V2 max: 126.1 cm/sec Ao max P.4 mmHg Ao V2 mean: 80.3 cm/sec Ao mean P.1 mmHg Ao V2 VTI: 25.7 cm LV V1 max P.0 mmHg LV V1 max: 99.8 cm/sec LV V1 VTI: 23.0 cm PA acc time: 0.15 sec AV Jagdish Ratio (DI): 0.79 E/E' av.6 Lateral E/e': 11.6 Medial E/e': 9.6 RV S Jagdish: 12.0 cm/sec Report approved by: Pb Martinez 02/29/2024 04:00 PM Procedure Note Jung Gomez MD - 02/29/2024 [id number]^NIGHAT^GENEVIEVE^RUDI [facility] [address] [place] [address] Name: JAMISON KING : 1960 Study Date: 02/29/2024 02:59 PM Age: 63 yrs Gender: Female Patient Location: [facility] Reason For Study: Chest pain, unspecified type, Elevated blood pressure reading wi Ordering Physician: GENEVIEVE DISLA Referring Physician: SOBIA GUZMAN Performed By: Ellen Oliveros BSA: 2.0 m2 Height: 66 in Weight: 205 lb HR: 71 Procedure Echocardiogram with two-dimensional, color and spectral Dopplerperformed. Interpretation Summary Global and regional left ventricular function is normal with an EF of60-65%. Right ventricular function, chamber size, wall motion, and thickness are normal. Pulmonary artery systolic pressure cannot be assessed. No significant valvular abnormalities present. The inferior vena cava is normal. No pericardial effusion is present. There is no prior study for direct comparison. Left Ventricle Global and regional left ventricular function is normal with an EF of60-65%. Left ventricular wall thickness is normal. Left ventricular size isnormal. Left ventricular diastolic function is normal. No regional wall motion abnormalities are seen. Right Ventricle Right ventricular function, chamber size, wall motion, and thickness are normal. Atria Both atria appear normal. Mitral Valve The mitral valve is normal. Trace mitral insufficiency is present. Aortic Valve Aortic valve is normal in structure and function. Tricuspid Valve The tricuspid valve is normal. Trace tricuspid insufficiency is present. Pulmonary artery systolic pressure cannot be assessed. Pulmonic Valve The valve leaflets are not well visualized. On Doppler interrogation,there is no significant stenosis or regurgitation. Vessels The thoracic aorta is normal. The pulmonary artery cannot be assessed.The inferior vena cava is normal. Pericardium No pericardial effusion is present. Miscellaneous No significant valvular abnormalities present. Compared to Previous Study There is no prior study for direct comparison. MMode/2D Measurements & Calculations asc Aorta Diam: 3.3 cm Asc Ao diam index BSA (cm/m2): 1.6 Asc Ao diam index Ht(cm/m): 2.0 LA Volume (BP): 34.9 ml LA Volume Index (BP): 17.3 ml/m2 TAPSE: 1.9 cm Doppler Measurements & Calculations MV E max jagdish: 88.7 cm/sec MV A max jagdish: 80.0 cm/sec MV E/A: 1.1 MV dec time: 0.20 sec Ao V2 max: 126.1 cm/sec Ao max P.4 mmHg Ao V2 mean: 80.3 cm/sec Ao mean P.1 mmHg Ao V2 VTI: 25.7 cm LV V1 max P.0 mmHg LV V1 max: 99.8 cm/sec LV V1 VTI: 23.0 cm PA acc time: 0.15 sec AV Jagdish Ratio (DI): 0.79 E/E' av.6 Lateral E/e': 11.6 Medial E/e': 9.6 RV S Jagdish: 12.0 cm/sec Report approved by: Pb Martinez 02/29/2024 04:00 PM Genevieve Disla MD CV ECHO ORDERA BLES * Troponin T, High Sensitivity (02/27/2024 3:56 PM CDT) Only the most recent of2 resultswithin the time period is included. [facility] Troponin T, High Sensitivity <6 <=14 ng/L 02/27/2024 4:28 PM CDT LABORATORY Comment: Either a High Sensitivity Troponin T baseline (0 hours) value = 100 ng/L, or an increase in High Sensitivity Troponin T = 7 ng/L at 2 hours compared to 0 hours (2-0 hours), suggests myocardial injury, and urgent clinical attention is required. ?? If the 2-0 hours increase is <7 ng/L, a High Sensitivity Troponin T result above gender-specific reference ranges warrants further evaluation. Recommendations for further evaluation include correlation with clinical decision-making tool (e.g., HEART), a 3rd High Sensitivity Troponin T test 2 hours after the 2nd (a 20% change from baseline would represent concern), admission for observation, close PCC/cardiology follow-up, or urgent outpatient provocative testing. Blood BLOOD SPECIMEN / Unknown Venipuncture / Unknown 02/27/2024 3:56 PM CDT 02/27/2024 4:00 PM CDT Sobia Guzmna MD LAB - BLOOD ORDERABL ES LABORATORY [facility] [address] 1[address] floor, [address] [place] [address], [place] [phone] * CT Aortic Survey w Contrast (02/27/2024 3:33 PM CDT) Anatomical Region Laterality Modality Abdomen/Pelvis, Chest, SUBRA D CT BODY, UMP CT CHEST, UMP CT ABDOMEN PELVIS, RAD CT Computed Tomography Impressions 02/27/2024 3:49 PM CDT IMPRESSION: 1. ??No evidence for aortic aneurysm or dissection. 2. ??Diffuse hepatic steatosis. JOSE MATIAS MD SYSTEM ID: ??[id number] Narrative 02/27/2024 3:[address] AORTIC SURVEY W CONTRAST 02/27/2024 3:33 PM CLINICAL HISTORY: chest pain radiating to back and jaw TECHNIQUE: Aortic survey protocol CT chest, abdomen, and pelvis. Arterial phase through the chest, abdomen, and pelvis. Precontrast images were also performed through the chest. Dose reduction techniques were used. CONTRAST: 72 mL Isovue-370 COMPARISON: None. FINDINGS: VASCULATURE: No evidence for aortic aneurysm or dissection. Mild to moderate vascular calcifications are seen within the thoracic and abdominal aorta. Common hepatic artery is noted to originate separately from the abdominal aorta. Dual bilateral renal arteries are present. The celiac artery, SMA, DURAN, and aortic arch branches are patent. The pulmonary arteries are moderately well opacified, and there is no evidence for pulmonary embolism. LUNGS AND PLEURA: No pleural effusion or pneumothorax is seen. Mild pleural scarring is seen in the lungs. Dependent subsegmental atelectasis is seen in the lower lobes. Stable 2 mm pulmonary nodule in the right middle lobe (series 7, image 146). Calcified granuloma in the left upper lobe is also unchanged. MEDIASTINUM/AXILLAE: No enlarged lymph nodes are identified in the chest. No pericardial effusion. CORONARY ARTERY CALCIFICATION: Mild. HEPATOBILIARY: Diffuse hepatic steatosis is present. Gallbladder is surgically absent. Mild dilation of the common bile duct is likely due to reservoir effect from cholecystectomy. PANCREAS: No significant mass, duct dilatation, or inflammatory change. SPLEEN: Normal size. ADRENAL GLANDS: No significant nodules. KIDNEYS/BLADDER: No significant mass, stones, or hydronephrosis. BOWEL: Diverticulosis in the colon. No acute inflammatory change. No obstruction. LYMPH NODES: No enlarged lymph nodes are identified in the abdomen or pelvis. PELVIC ORGANS: Moderate fat-containing right inguinal hernia is present. ADDITIONAL FINDINGS: None. MUSCULOSKELETAL: Mild to moderate degenerative changes are seen in the spine. Procedure Note Jose Matias MD - 02/27/2024 CT AORTIC SURVEY W CONTRAST 02/27/2024 3:33 PM CLINICAL HISTORY: chest pain radiating to back and jaw TECHNIQUE: Aortic survey protocol CT chest, abdomen, and pelvis. Arterial phase through the chest, abdomen, and pelvis. Precontrast images were also performed through the chest. Dose reduction techniques were used. CONTRAST: 72 mL Isovue-370 COMPARISON: None. FINDINGS: VASCULATURE: No evidence for aortic aneurysm or dissection. Mild to moderate vascular calcifications are seen within the thoracic and abdominal aorta. Common hepatic artery is noted to originate separately from the abdominal aorta. Dual bilateral renal arteries are present. The celiac artery, SMA, DURAN, and aortic arch branches are patent. The pulmonary arteries are moderately well opacified, and there is no evidence for pulmonary embolism. LUNGS AND PLEURA: No pleural effusion or pneumothorax is seen. Mild pleural scarring is seen in the lungs. Dependent subsegmental atelectasis is seen in the lower lobes. Stable 2 mm pulmonary nodule in the right middle lobe (series 7, image 146). Calcified granuloma in the left upper lobe is also unchanged. MEDIASTINUM/AXILLAE: No enlarged lymph nodes are identified in the chest. No pericardial effusion. CORONARY ARTERY CALCIFICATION: Mild. HEPATOBILIARY: Diffuse hepatic steatosis is present. Gallbladder is surgically absent. Mild dilation of the common bile duct is likely due to reservoir effect from cholecystectomy. PANCREAS: No significant mass, duct dilatation, or inflammatory change. SPLEEN: Normal size. ADRENAL GLANDS: No significant nodules. KIDNEYS/BLADDER: No significant mass, stones, or hydronephrosis. BOWEL: Diverticulosis in the colon. No acute inflammatory change. No obstruction. LYMPH NODES: No enlarged lymph nodes are identified in the abdomen or pelvis. PELVIC ORGANS: Moderate fat-containing right inguinal hernia is present. ADDITIONAL FINDINGS: None. MUSCULOSKELETAL: Mild to moderate degenerative changes are seen in the spine. IMPRESSION: 1. No evidence for aortic aneurysm or dissection. 2. Diffuse hepatic steatosis. JOSE MATIAS MD SYSTEM ID: [id number] Sobia Guzman MD IMG CT ORDERABLES * EKG 12 lead (02/27/2024 1:46 PM CDT) Systolic Blood Pressure mmHg RADIOLOGY RESULTS Diastolic Blood Pressure mmHg RADIOLOGY RESULTS Ventricular Rate 65 BPM RAD IOLOGY RESULTS Atrial Rate 65 BPM RADIOLOG Y RESULTS UT Interval 172 ms RADIOLOG Y RESULTS QRS Duration 90 ms RADIOLO GY RESULTS QT 412 ms RADIOLOGY RESULTS QTc 428 ms RADIOLOGY RESULTS P [place] 52 degrees RADIOLOGY RESULTS R AXIS 102 degrees RADIOLOGY RESULTS T [place] 42 degrees RADIOLOGY RESULTS Interpretation ECG Sinus rhythm Possible Left atrial enlargement Rightward axis Septal infarct , age undetermined Abnormal ECG When compared with ECG of 07-Aug-2021 05:34, Septal infarct is now Present Confirmed by GENERATED REPORT, COMPUTER ([id number]), purchase request editor JOS GRIMES ([id number]) on 02/28/2024 11:28:34 AM RADIOLOGY RESULTS 02/27/2024 1:46 PM CDT 02/28/2024 11:28 AM CDT Sobia Guzman MD ECG ORDERABLES RADIOLOGY RESULTS * Extra Purple Top Tube (02/27/2024 1:30 PM CDT) [facility] Signature Hold Specimen [facility] 02/27/2024 2:47 PM CDT LABORATORY Blood STRUCTURE OF LEFT UPPER LIMB / Unknown Venipuncture / Unknown 02/27/2024 1:30 PM CDT 02/27/2024 1:42 PM CDT Sobia Guzman MD LAB - BLOOD ORDERABL ES LABORATORY [facility] [address], [address] [place] [address], [facility] [phone] * Extra Green Top ([place] Heparin) Tube (02/27/2024 1:30 PM CDT) Hold Specimen [facility] 02/27/2024 2:47 PM CDT LABORATORY Blood STRUCTURE OF LEFT UPPER LIMB / Unknown Venipuncture / Unknown 02/27/2024 1:30 PM CDT 02/27/2024 1:42 PM CDT Sobia Guzman MD LAB - BLOOD ORDERABL ES [facility] [address] 1[address], [address] [place] [address], [facility] [phone] * Extra Red Top Tube (02/27/2024 1:30 PM CDT) Hold Specimen [facility] 02/27/2024 2:47 PM CDT LABORATORY Blood STRUCTURE OF LEFT UPPER LIMB / Unknown Venipuncture / Unknown 02/27/2024 1:30 PM CDT 02/27/2024 1:42 PM CDT Sobia Guzman MD LAB - BLOOD ORDERABL ES Performing Organization Address City/[facility] [address]/ZIP Co de Phone Number LABORATORY [facility] [address], [address] [place] [address], [facility] [phone] * Extra Blue Top Tube (02/27/2024 1:30 PM CDT) Hold Specimen [facility] 02/27/2024 2:47 PM CDT LABORATORY Blood STRUCTURE OF LEFT UPPER LIMB / Unknown Venipuncture / Unknown 02/27/2024 1:30 PM CDT 02/27/2024 1:42 PM CDT Sobia Guzman MD LAB - BLOOD ORDERABL ES LABORATORY [facility] [address], [address] [place] [address], [place] [phone] * CBC with platelets and differential (02/27/2024 1:30 PM CDT) WBC Count 6.6 4.0 - 11.0 10e3/uL 02/27/2024 1:47 PM CDT LABORATORY RBC Count 3.84 3.80 - 5.20 10e6/uL 02/27/2024 1:47 PM CDT LABORATORY Hemoglobin 12.2 11.7 - 15.7 g/dL 02/27/2024 1:47 PM CDT LABORATORY Hematocrit 35.9 35.0 - 47.0 % 02/27/2024 1:47 PM CDT LABORATORY MCV 94 78 - 100 fL 02/27/2024 1:47 PM CDT LABORATORY MCH 31.8 26.5 - 33.0 pg 02/27/2024 1:47 PM CDT LABORATORY MCHC 34.0 31.5 - 36.5 g/dL 02/27/2024 1:47 PM CDT LABORATORY RDW 12.9 10.0 - 15.0 % 02/27/2024 1:47 PM CDT LABORATORY Platelet Count 260 150 - 450 10e3/uL 02/27/2024 1:47 PM CDT LABORATORY % Neutrophils 53 % 02/27/2024 1:47 PM CDT LABORATORY % Lymphocytes 36 % 02/27/2024 1:47 PM CDT LABORATORY % Monocytes 8 % 02/27/2024 1:47 PM CDT LABORATORY % Eosinophils 2 % 02/27/2024 1:47 PM [facility] % Basophils 1 % 02/27/2024 1:47 PM [facility] % Immature Granulocytes 0 % 02/27/2024 1:47 PM CDT LABORATORY NRBCs per 100 WBC 0 <1 /100 024 1:47 PM CDT LABORATORY Absolute Neutrophils 3.5 1.6 - 8.3 10e3/uL 02/27/2024 1:47 PM CDT LABORATORY Absolute Lymphocytes 2.4 0.8 - 5.3 10e3/uL 02/27/2024 1:47 PM CDT LABORATORY Absolute Monocytes 0.5 0.0 - 1.3 10e3/uL 02/27/2024 1:47 PM CDT LABORATORY Absolute Eosinophils 0.1 0.0 - 0.7 10e3/uL 02/27/2024 1:47 PM CDT LABORATORY Absolute Basophils 0.0 0.0 - 0.2 10e3/uL 02/27/2024 1:47 PM CDT LABORATORY Absolute Immature Granulocytes 0.0 <=0.4 10e3/uL 02/27/2024 1:47 PM CDT LABORATORY Absolute NRBCs 0.0 10e3/uL 02/27/2024 1:47 PM CDT LABORATORY Blood STRUCTURE OF LEFT UPPER LIMB / Unknown Venipuncture / Unknown 02/27/2024 1:30 PM CDT 02/27/2024 1:42 PM CDT Sobia Guzman MD LAB - BLOOD ORDERABL ES LABORATORY [facility] [address] 1[address], [address] [place] [address], [facility] [phone] * EKG 12-lead complete w/read - Clinics (02/27/2024 12:27 PM CDT) Shayla Dumont APRN [employer]INTING SALES REPRESENTATIVE ECG ORDERABL ES * MA Screening Bilateral w/ Jerome (07/15/2023) MAMMOGRAM Anatomical Region Laterality Modality Breast Bilateral Other Narrative 07/15/2023 [address] [facility], [address] [place] [address] [place] : 1960 Req Phys: Woo Hicks PA-C Patient name: JAMISON KING Clinic: [facility] Dept No: [id number] MAMMOGRAM SCREENING JEROME BILATERAL Exam Date: 07/15/2023 EXAM: MAMMOGRAM SCREENING JEROME BILATERAL LOCATION: [facility] [place] DATE: 07/15/2023 INDICATION: Asymptomatic. Screening Mammogram. COMPARISON: 12/30/21, 10/31/20 BREAST DENSITY: There are scattered areas of fibroglandular density. FINDINGS: Tomosynthesis craniocaudal and mediolateral oblique views were obtained. There is no evidence for spiculated masses, architectural distortion, asymmetry or suspicious calcifications. IMPRESSION: No evidence of malignancy. Recommend routine annual screening mammography. When performed, computer-aided detection was used in the interpretation of this study. ACR 1: Negative. A lay language report of this examination will be mailed to the patient. Dictated By: NICOLAS BURLESON M.D. Password protected electronic signature by: MIAH Trans: SI Date Of Trans: 07/15/2023 9:58:00AM Date report approved and signed by interpreting physician: 07/15/2023 9:56:00AM Page 1 of 1 Woo Hicks PA-C IMG MAMMOGRAPHY ORDE RABLES * COLONOSCOPY (04/28/2012) Provider Abstract PROCEDURES * A THIN LAYER PAP SCREEN (01/06/2004 12:00 AM CDT) Copath Report Patient Name: JAMISON KING MR#: [id number] Specimen #: [id number] Collected: 01/06/2004 Received: 01/08/2004 Reported: 01/13/2004 12:28 Ordering Phy(s): ARTEM TORRES SPECIMEN/STAIN PROCESS: Pap thin layer prep screening ? Pap-Cyto x 1, Reflex HPV x 1 SOURCE: Vaginal Pap thin layer prep screening SPECIMEN ADEQUACY: Satisfactory for evaluation. -Transitional zone component absent. CYTOLOGIC INTERPRETATION: Negative for Intraepithelial Lesion or Malignancy ? 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 Electronically signed out by: BHAVANA Lui (ASCP) Processed and screened at [facility] CLINICAL HISTORY: Hysterectomy, Previous normal pap: 1999, COP 01/06/2004 01/08/2004 12: 03 PM CDT Artem Torres MD LABORATORY COPATH from Last 3 Months or Most Recently Relevant to Health Maintenance Care Teams Wallpaper Printer Relationship Specialty Start Date End Date Woo Hicks PA-C [address] [place] [address] PCP - General Family Medicine 08/26/22 Melba Calderon MD [address] [place] [address] Referring Physician Family Medicine 08/04/20 Terrance Bass MD [address] [place] [address] Pulmonary Disease 08/04/20 Judson Crowder MD [address] [place] [address] Assigned PCP 07/10/22 Annemarie Moon MD [address] [facility] [address] [place] [address] Cardiology 03/01/24 Annemarie Moon MD [address] [facility] [address] [place] [address] Assigned Heart and Vascular Provider 03/09/24
--- OUTSIDE RECORDS SUMMARY | 2024-04-27 08:02 | XMS_ITS | Encounter Summary ---
Author Organization [facility] Address [address] [place] [address] Care Team Providers Care Barley Steeper Name Role Phone Melba Calderon MD Unavailable Terrance Bass MD Unavailable Judson Crowder MD Unavailable Woo Hicks PA-C Primary Care Provider Annemarie Moon MD Unavailable Annemarie Moon MD Unavailable Reason for Visit * Reason Onset Date Comments Medication Question 04/26/2024 Encounter Details Date Type Department Care Team (Late st Contact Info) Description 04/26/2024 MyC Medical Advice [facility] [address] [address] Woo Hicks PA-C [address] [address] Medication Question Social History Tobacco Use Types Packs/Day Years Used Date Smoking Tobacco: Never Passive Smoke Exposure: Past Smokeless Tobacco: Never Alcohol Use Standard Drinks/Week Comments Yes 1.7 (1 standard drink = 0.6 oz p ure alcohol) rare PHQ-2 Answer Date Recorded PHQ-2 Score 3 03/28/2024 Adolescent Education Answer Date Record ed Getting School Help Needed Not on file 04/12 Sex and Gender Information Value Date Recorded Sex Assigned at Not on file Gender Identity Not on file Sexual Orientation Not on file documented as of this encounter Plan of Treatment Not on file documented as of this encounter Visit Diagnoses Not on filedocumented in this encounter Additional Health Concerns Assessment Noted Time PHQ-9 Depression Total Score: 11 024 9:30 AM CDT documented as of this encounter Care Teams Barley Steeper Relationship Specialty Start Date End Date Woo Hicks PA-C [address] [place] [address] PCP - General Family Medicine 08/26/22 Melba Calderon MD [address] [place] [address] Referring Physician Family Medicine 08/04/20 Terrance Bass MD [address] [place] [address] Pulmonary Disease 08/04/20 Judson Crowder MD [address] , [id number] [place] [address] Assigned PCP 07/10/22 Annemarie Moon MD 1600 [facility] [address] [place] [address] Cardiology 03/01/24 Annemarie Moon MD 1600 [facility] [address] [place] [address] Assigned Heart and Vascular Provider 03/09/24 documented as of this encounter
--- OUTSIDE RECORDS SUMMARY | 2024-04-27 08:02 | XMS_ITS | Encounter Summary ---
Author Organization [facility] Address [address] [place] [address] Care Team Providers Care Aircraft Log Clerk Name Role Phone Melba Calderon MD Unavailable Terrance Bass MD Unavailable [phone] Judson Crowder MD Unavailable Woo Hicks PA-C Primary Care Provider Reason for Visit * CV Testing (Routine) - Closed Specialty Diagnoses / Procedures Referred By Contac t Referred To Contact Cardiology Diagnoses Chest pain, unspecified type Elevated blood pressure reading with diagnosis of hypertension Procedures Echocardiogram Complete Exercise Stress Echocardiogram [facility] DOPPLER ECHO PULSED, F/U OR LIMITED [facility] DOPPLER ECHO COLOR FLOW VELOCITY MAP [facility] ECHO HEART XTHORACIC, STRESS/REST [facility] ECHO TRANSTHORACIC, STRESS/REST W CONTRAST [facility] ECHO TRANSTHORACIC, STRESS/REST W/O CONTRAST [facility] IV PUSH SINGLE, INITIAL SUBSTANCE ZZ[facility] INJECTION, PERFLUTREN LIPID MICROSPHERES, PER ML [facility] STATISTIC IV PUSH SINGLE INITIAL SUBSTANCE MI DOPPLER ECHO PULSED, F/U OR LIMITED MI DOPPLER ECHO COLOR FLOW VELOCITY MAP MI ECHO HEART XTHORACIC, STRESS/REST MI INJECTION, PERFLUTREN LIPID MICROSPHERES, PER ML MI IV PUSH SINGLE, INITIAL SUBSTANCE MI ECHO HEART XTHORACIC, STRESS/REST MI ECHO HEART XTHORACIC, STRESS/REST HC DOPPLER ECHO PULSED, F/U OR LIMITED HC DOPPLER ECHO COLOR FLOW VELOCITY MAP HC IV PUSH SINGLE, INITIAL SUBSTANCE HC STATISTIC IV PUSH SINGLE INITIAL SUBSTANCE HC ECHO TRANSTHORACIC, STRESS/REST W CONTRAST HC ECHO TRANSTHORACIC, STRESS/REST W/O CONTRAST [facility] TTE W/DOPPLER, COMPLETE [facility] ECHO COMPLETE W DOPPLER W CONTRAST [facility] ECHO COMPLETE W DOPPLER W/O CONTRAST [facility] US GUIDE FOR PERICARDIOCENTESIS [facility] ECHO MYOCARD BX MI ECHO MYOCARD BX MI TTE W/DOPPLER, COMPLETE MI TTE W/DOPPLER, COMPLETE MI TTE W/DOPPLER, COMPLETE HC US GUIDE FOR PERICARDIOCENTESIS HC ECHO MYOCARD BX HC ECHO COMPLETE W DOPPLER W CONTRAST HC ECHO COMPLETE W DOPPLER W/O CONTRAST Sobia Guzman MD [facility] [address] [place] [address] [facility] [address] [place] [address] Referral ID Status Reason Start Date Expiration Date Visits Re quested Visits Authorized [id number] Closed 02/27/2024 02/26/2025 1 1 Encounter Details Date Type Department Care Team (Latest Contact Info) Description 02/29/2024 2:49 PM CDT - 02/29/2024 11:59 PM CDT Hospital Encounter [facility] [address] [place] [address] Woo Hicks PA-C [address] [place] [address] [place] [address] Chest pain, unspecified type; Elevated blood pressure reading with diagnosis of hypertension Discharge Disposition: Home or Self Care Social History Tobacco Use Types Packs/Day Years Used Date Smoking Tobacco: Never Passive Smoke Exposure: Past Smokeless Tobacco: Never Alcohol Use Standard Drinks/Week Comments Yes 1.7 (1 standard drink = 0.6 oz p ure alcohol) rare PHQ-2 Answer Date Recorded PHQ-2 Score 2 06/30/2023 Adolescent Education Answer Date Record ed Getting School Help Needed Not on file 04/12 Sex and Gender Information Value Date Recorded Sex Assigned at Not on file Gender Identity Not on file Sexual Orientation Not on file documented as of this encounter Medications at Time of Discharge Medication Sig Dispensed Refills Start Date End Date albuterol (ALBUTEROL) 108 (90 BASE) MCG/ACT inhalerIndications:Inte rmittent asthma,Major depression in complete remission (H),Headache(784.0),All ergic rhinitis, cause unspecified,Hypercholes terolemia,Esophageal reflux,Symptomatic menopausal or female climacteric states,Sciatica,Routine general medical examination at a health care facility,Hyperlipidemia LDL goal <130,Benign hypertension,Need for zltbfybojt-hiignrr-jlnr ussis (Tdap) vaccine, adult/adolescent,Unspec ified episodic mood disorder,Obesity Inhale 1-2 puffs into the lungs every 4 hours as needed 1 Inhaler 11 07/03/2013 albuterol (PROAIR HFA/PROVENTIL HFA/VENTOLIN HFA) 108 (90 Base) MCG/ACT inhalerIndications:Mild intermittent asthma without complication Inhale 2 puffs into the lungs every 6 hours as needed for shortness of breath, wheezing or cough 18 g 3 06/30/2023 buPROPion (WELLBUTRIN XL) 300 MG 24 hr tabletIndications:Recur rent major depressive disorder, in full remission (H) Take 1 tablet (300 mg) by mouth daily 90 tablet 3 06/30/2023 clindamycin (CLEOCIN T) 1 % external lotion APPLY A THIN LAYER TO AFFECTED AREA ON FACE AND TRUNK 1-2X DAILY, ONGOING. 09/11/2023 estradiol (ESTRACE) 1 MG tabletIndications:Sympt omatic menopausal or female climacteric states Take 1.5 tablets (1.5 mg) by mouth daily 135 tablet 06/30/2023 hydrOXYzine (ATARAX) 25 MG tablet Take 25 mg by mouth 3 times daily as needed for anxiety. metroNIDAZOLE (METROCREAM) 0.75 % external cream APPLY A THIN LAYER TO AFFECTED AREA 1-2X DAILY, ONGOING. 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 01/17/2023 butalbital-acetaminophe n-caffeine (ESGIC) 50-325-40 MG tabletIndications:Episo dic tension-type headache, not intractable Take 1 tablet by mouth every 4 hours as needed for pain 60 tablet 2 03/29/2023 03/02/2024 candesartan (ATACAND) 16 MG tabletIndications:Benig n hypertension Take 1 tablet (16 mg) by mouth daily 90 tablet 1 06/30/2023 03/28/2024 fluticasone (ARNUITY ELLIPTA) 100 MCG/ACT inhalerIndications:Mild intermittent asthma without complication Inhale 1 puff into the lungs daily 30 each 6 06/30/2023 03/23/2024 gabapentin (NEURONTIN) 300 MG capsuleIndications:Rest less legs syndrome (RLS) Take 1 capsule (300 mg) by mouth daily 90 capsule 3 06/30/2023 03/28/2024 meclizine (ANTIVERT) 25 MG tabletIndications:Dizzi ness Take 1 tablet (25 mg) by mouth 3 times daily as needed for dizziness 60 tablet 11/10/2023 03/28/2024 methocarbamol (ROBAXIN) 750 MG tabletIndications:Bilat eral sciatica TAKE 1 TABLET (750 MG) BY MOUTH NIGHTLY NEEDED FOR MUSCLE SPASMS 30 tablet 01/16/2024 03/23/2024 montelukast (SINGULAIR) 10 MG tabletIndications:Mild intermittent asthma without complication,Seasonal allergic rhinitis due to other allergic trigger TAKE 1 TABLET BY MOUTH EVERYDAY AT BEDTIME 90 tablet 11/03/2023 03/23/2024 omeprazole (PRILOSEC) [address] capsuleIndications:Deny roesophageal reflux disease with esophagitis without hemorrhage Take 1 capsule (40 mg) by mouth daily 90 capsule 3 06/30/2023 03/28/2024 rosuvastatin (CRESTOR) 10 MG tabletIndications:Hyper lipidemia LDL goal <130 Take 1 tablet (10 mg) by mouth daily 90 tablet 3 06/30/2023 03/02/2024 documented as of this encounter Progress Notes * Woo Patel - 02/29/2024 3:21 PM CDT Patient arrived at [facility] for echo stress test. Supervising stone crusher operator cancelled stress test due to hypertension. Limited echocardiogram completed instead. Supervising provider recommended pt to follow-up with cardiology for assessment prior to rescheduling stress test. documented in this encounter Plan of Treatment Not on file documented as of this encounter Procedures Procedure Name Priority Date/Time Associated Diagnosis Comments ECHO COMPLETE YUE 02/29/2024 3:49 PM CDT Chest pain, unspecified type Elevated blood pressure reading with diagnosis of hypertension documented in this encounter Results * ECHO COMPLETE (02/29/2024 3:49 PM CDT) LVEF 60-65% CARDIOLOGY RESULTS Anatomical Region Laterality Modality Echocardiography 02/29/2024 2:59 PM CDT Narrative 02/29/2024 4:00 PM CDT [id number]^NIGHAT^GENEVIEVE^RUDI [facility] [address] [place] [address] Name: JAMISON KING : 1960 Study Date: 02/29/2024 02:59 PM Age: 63 yrs Gender: Female Patient Location: [facility] Reason For Study: Chest pain, unspecified type, Elevated blood pressure reading wi Ordering Physician: GENEVIEVE CHARLTON Referring Physician: SOBIA GUZMNA Performed By: Ellen Oliveros BSA: 2.0 m2 [...] Procedure Note Jung Gomez MD - 02/29/2024 [id number]^NIGHAT^GENEVIEVE^RUDI [facility] [address] [place] [address] Name: JAMISON KING : 1960 Study Date: 02/29/2024 02:59 PM Age: 63 yrs Gender: Female Patient Location: 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
--- OUTSIDE RECORDS SUMMARY | 2024-04-27 08:02 | XMS_ITS | Encounter Summary ---
Author Organization [facility] Address [address] [place] [address] Care Team Providers Care Data Virtualization Consultant Name Role Phone Melba Calderon MD Unavailable Terrance Bass MD Unavailable Judson Crowder MD Unavailable Woo Hicks PA-C Primary Care Provider Annemarie Moon MD Unavailable Annemarie Moon MD Unavailable [phone] Reason for Referral * Diagnostic Imaging XR (Urgent: 3-5 Days) - Pending Review Specialty Diagnoses / Procedures Referred By Contac t Referred To Contact Radiology. 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) Procedures CT Coronary Artery Angio w Calcium Score Annemarie Moon MD [address] [facility] [address] [place] [address] [address] Referral ID Status Reason Start Date Expiration Date Visits Re quested Visits Authorized [id number] Closed 03/08/2024 03/08/2025 1 1 Encounter Details Date Type Department Care Team (Latest Contact Info) Description 03/21/2024 12:34 PM CDT - 03/21/2024 11:59 PM CDT Hospital Encounter [facility] [address] [place] [phone] Annemarie Moon MD [address] [facility] [address] [place] [address] Chest pain, unspecified type; Elevated blood pressure reading with diagnosis of hypertension; 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) Discharge Disposition: Home or Self Care Social [...] on file documented as of this encounter Last Filed Vital Signs Vital Sign Reading Time Taken Comments Blood Pressure 143/80 03/21/2024 1:31 PM CDT Pulse 83 03/21/2024 1:31 PM CDT Temperature - - Respiratory Rate - - Oxygen Saturation - - Inhaled Oxygen Concentration - - Weight 92.1 kg (203 lb) 03/21/2024 1:16 PM CDT Height 167.6 cm (5' 6) 03/21/2024 1:16 PM CDT Body Mass Index 32.77 03/21/2024 1:16 PM CDT documented in this encounter Medications at Time of Discharge Medication Sig Dispensed Refills Start Date End Date albuterol (ALBUTEROL) 108 (90 BASE) MCG/ACT inhalerIndications:Inte rmittent asthma,Major depression in complete remission (H),Headache(784.0),All ergic rhinitis, cause unspecified,Hypercholes terolemia,Esophageal reflux,Symptomatic menopausal or female climacteric states,Sciatica,Routine general medical examination at a health care facility,Hyperlipidemia LDL goal <130,Benign hypertension,Need for hwalswvcmj-khpphyc-hemg ussis (Tdap) vaccine, adult/adolescent,Unspec ified episodic mood [...] by mouth daily 90 tablet 3 06/30/2023 butalbital-acetaminophe n-caffeine (ESGIC) 50-325-40 MG tabletIndications:Episo dic tension-type headache, not intractable Take 1 tablet by mouth every 4 hours as needed for pain 60 tablet 03/02/2024 clindamycin (CLEOCIN T) 1 % external lotion [...] Respiratory Therapy Supplies (CARETOUCH 2 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 01/17/2023 candesartan (ATACAND) 16 MG tabletIndications:Benig n hypertension Take 1 tablet (16 mg) by mouth daily 90 tablet 1 06/30/2023 03/28/2024 chlorthalidone (HYGROTON) 25 MG tabletIndications:Benig n hypertension Take 1 tablet (25 mg) by mouth daily 30 tablet 03/02/2024 03/23/2024 fluticasone (ARNUITY ELLIPTA) 100 MCG/ACT inhalerIndications:Mild intermittent [...] mouth daily 90 capsule 3 06/30/2023 03/28/2024 documented as of this encounter Plan of Treatment Not on file documented as of this encounter Procedures Procedure Name Priority Date/Time Associated Diagnosis Comments RADIOLOGIST CONSULT FOR CARDIOLOGY STAT 03/21/2024 1:38 PM CDT Chest pain, unspecified type Elevated blood pressure reading with diagnosis of hypertension 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 1. ??Hepatic steatosis. 2. ??Please refer to detacker's dictation for the cardiac CT report. 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 COMPARISON: CT 02/27/2024 FINDINGS: ?? LIMITED CHEST: Bilateral dependent atelectasis. LIMITED MEDIASTINUM: Negative. LIMITED UPPER ABDOMEN: Hepatic steatosis. Procedure Note Johann Nguyen MD - 03/21/2024 OVERREAD: DETAILED [facility] EXTRACARDIAC OVERREAD OF CARDIAC CT LOCATION: [facility] DATE: 03/21/2024 INDICATION: Chest pain, unspecified type, Elevated blood pressure readingwith diagnosis of hypertension, Coronary artery disease involving nativecoronary artery of umatilla tribe heart with other form of angina pectoris (H24) TECHNIQUE: Dose reduction techniques were used. COMPARISON: CT 02/27/2024 FINDINGS: LIMITED CHEST: Bilateral dependent atelectasis. LIMITED MEDIASTINUM: Negative. LIMITED UPPER ABDOMEN: Hepatic steatosis. IMPRESSION: 1. Hepatic steatosis. 2. Please refer to detacker's dictation for the cardiac CT report. Annemarie [...] as heart attack and stroke. MANAGEMENT The [place] [employer]/[place] [employer] of [employer] (AHA/ACC) 2018 Guideline on [...] al. J Am Anette Cardiol. 2015 Apr 13;66(15):1643-53.) However, note that these are general recommendations only, and as with all such matters, the personal physician should be consulted regarding recommendations appropriate for the individual. If further guidance is needed, you can schedule an appointment with one of our Preventive Cardiologists ([email or web address] References: 1. 2018 AHA/ACC/AACVPR/AAPA/ABC/ACPM/ADA/AGS/APhA/ASPC/NLA/PCNA Guideline on the Management of Blood Cholesterol 2. CAC-DRS: Coronary Artery Calcium Data and Reporting System. 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 As verbally ordered by the provider., Starting on Tue03/12/24 at 1507, For 2 doses, If there is a delay in the procedure, administer a second dose if necessary 15 minutes after the initial dose IF directed by the provider prior to the start of the exam. Hold for systolic blood pressure less than 90 mmHg - notify provider. 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 documented as of this encounter Care Teams Data Virtualization Consultant Relationship Specialty Start Date End Date Woo Hicks PA-C [address] [address] PCP - General Family Medicine 08/26/22 Melba Calderon MD [address] [address] Referring Physician Family Medicine 08/04/20 Terrance Bass MD [address] [place] [address] Pulmonary Disease 08/04/20 Judson Crowder MD [address] [place] [address] Assigned PCP 07/10/22 Annemarie Moon MD 1600 [facility] [address] [place] [address] Cardiology 03/01/24 Annemarie Moon MD 1600 [facility] [address] [place] [address] Assigned Heart and Vascular Provider 03/09/24 documented as of this encounter
--- OUTSIDE RECORDS SUMMARY | 2024-04-27 08:02 | XMS_ITS | Encounter Summary ---
Author Organization [facility] Address [address] [place] [address] Care Team Providers Care Hydraulic Auto Jack Mechanic Name Role Phone Melba Calderon MD Unavailable Terrance Bass MD Unavailable Judson Crowder MD Unavailable Claudia Chavez PA-C Primary Care Provider Annemarie Moon MD Unavailable Annemarie Moon MD Unavailable Reason for Visit * Reason Comments Medication Refill Encounter Details Date Type Department Care Team (Late st Contact Info) Description 03/23/2024 Refill [facility] [address] [phone] Claudia Chavez PA-C [address] [address] Medication Refill Social History Tobacco Use Types Packs/Day Years [...] on file documented as of this encounter Miscellaneous Notes * Telephone Encounter - Cody Blood CMA - 03/23/2024 11:07 AM CDT Patient called back asking for an extension of Pending Prescriptions: Disp Refills methocarbamol (ROBAXIN) 750 MG tablet 7 tabl*0 Sig: Take 1 tablet (750 mg) by mouth nightly as needed for muscle spasms. montelukast (SINGULAIR) 10 MG tablet 7 tabl*0 Sig: Take 1 tablet (10 mg) by mouth at bedtime. fluticasone (ARNUITY ELLIPTA) 100 MCG/ACT*30 each0 Sig: Inhale 1 puff into the lungs daily. Signed Prescriptions: Disp Refills chlorthalidone (HYGROTON) 25 MG tablet 7 tabl*0 Sig: TAKE 1 TABLET BY MOUTH EVERY DAY Authorizing Provider: CLAUDIA CHAVEZ Refused Prescriptions: Disp Refills estradiol (ESTRACE) 1 MG tablet [Pharmacy *10 tab*0 Sig: TAKE 1.5 TABLETS (1.5 MG) BY MOUTH DAILY Refused By: CLAUDIA CHAVEZ Reason for Refusal: Originating/Specialty Provider to approve She is scheduled for 03/28. Routing to claudia to send in. * Telephone Encounter - Claudia Chavez PA-C - 03/23/2024 9:53 AM CDT Estrogen needs to be filled via [facility], documented in the past, otherwise approved Claudia Chavez PA-C [facility] * Telephone Encounter - Hemalatha Griffith CMA - 03/23/2024 9:39 AM CDT Pt scheduled appt for 03/28. Renee King is requesting a refill of: Pending Prescriptions: Disp Refills estradiol (ESTRACE) 1 MG tablet [Pharmacy*10 tab*0 Sig: TAKE 1.5 TABLETS (1.5 MG) BY MOUTH DAILY chlorthalidone (HYGROTON) 25 MG tablet [P*7 tabl*0 Sig: TAKE 1 TABLET BY MOUTH EVERY DAY * Addendum Note - Cody Blood CMA - 03/23/2024 9:26 AM CDTAddended by: CODY RODRIGUES on: 03/23/2024 11:08 AM Modules accepted: Orders * Addendum Note - Claudia Chavez PA-C - 03/23/2024 9:26 AM CDTAddended by: CLAUDIA CHAVEZ on: 03/23/2024 12:15 PM Modules accepted: Orders documented in this encounter Plan of Treatment Not on file documented as of this encounter Visit Diagnoses Diagnosis Symptomatic menopausal or female climacteric states Benign hypertension Essential hypertension, benign Bilateral sciatica Sciatica Mild intermittent asthma without complication Unspecified asthma Seasonal allergic rhinitis due to other allergic trigger documented in this encounter Additional Health Concerns Assessment Noted Time PHQ-9 Depression Total Score: 12 06/30/2 023 5:11 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 documented as of this encounter Care Teams Hydraulic Auto Jack Mechanic Relationship Specialty Start Date End Date Claudia Chavez PA-C [address] [place] [address] PCP - General Family Medicine 08/26/22 Melba Calderon MD [address] [place] [address] Referring Physician Family Medicine 08/04/20 Terrance Bass MD [address] [place] [address] Pulmonary Disease 08/04/20 Judson Crowder MD [address], [id number] [place] [address] Assigned PCP 07/10/22 Annemarie Moon MD [address] [facility] [address] [place] [address] Cardiology 03/01/24 Annemarie Moon MD [address] [facility] [address] [place] [address] Assigned Heart and Vascular Provider 03/09/24 documented as of this encounter
--- OUTSIDE RECORDS SUMMARY | 2024-04-27 08:02 | XMS_ITS | Encounter Summary ---
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
--- OUTSIDE RECORDS SUMMARY | 2024-04-27 08:02 | XMS_ITS | Encounter Summary ---
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 documented as of this encounter Care Teams Mineral Ore Processing Labourer Relationship Specialty Start Date End Date Woo Hicks PA-C [address] [place] [address] PCP - General Family Medicine 08/26/22 Melba Calderon MD [address] [place] [address] Referring Physician Family Medicine 08/04/20 Terrance Bass MD [address] [place] [address] Pulmonary Disease 08/04/20 Judson Crowder MD [address], [id number] [place] [address] Assigned PCP 07/10/22 Annemarie Moon MD 1600 [facility] 200 [place] [address] Cardiology 03/01/24 documented as of this encounter
--- OUTSIDE RECORDS SUMMARY | 2024-04-27 08:02 | XMS_ITS | Encounter Summary ---
Author Organization [facility] Address [address] [place] [address] Care Team Providers Care Map Maker Name Role Phone Melba Calderon MD Unavailable [phone] Terrance Bass MD Unavailable Judson Crowder MD Unavailable Woo Hicks PA-C Primary Care Provider Annemarie Moon MD Unavailable Annemarie Moon MD Unavailable Reason for Visit * Reason Comments Medication Refill Encounter Details Date Type Department Care Team (Late st Contact Info) Description 03/22/2024 Refill [facility] [address] [phone] Woo Hicks PA-C [address] [address] Medication Refill Social History Tobacco Use Types [...] encounter Miscellaneous Notes * Telephone Encounter - Manoj Griffith CMA - 03/23/2024 7:24 AM CDT Renee Montgomery Christine is requesting a refill of: Refused Prescriptions: Disp Refills montelukast (SINGULAIR) 10 MG tablet [Phar* Sig: TAKE 1 TABLET BY MOUTH EVERYDAY AT BEDTIME Refused By: MANOJ GRIFFITH Reason for Refusal: Patient needs appointment methocarbamol (ROBAXIN) 750 MG tablet [Pha* Sig: TAKE 1 TABLET (750 MG) BY MOUTH NIGHTLY NEEDED FOR MUSCLE SPASMS Refused By: MANOJ GRIFFITH Reason for Refusal: Patient needs appointment Pt due for OV documented in this encounter Plan of Treatment Not on file documented as of this encounter Visit Diagnoses Diagnosis Mild intermittent asthma without complication Unspecified asthma Seasonal allergic rhinitis due to other allergic trigger Bilateral sciatica Sciatica documented in this encounter Additional Health Concerns Assessment Noted Time PHQ-9 Depression Total Score: 12 023 5:11 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 documented as of this encounter Care Teams Map Maker Relationship Specialty Start Date End Date Woo Hicks PA-C [address] [place] [address] PCP - General Family Medicine 08/26/22 Melba Calderon MD [address] [place] [address] Referring Physician Family Medicine 08/04/20 Terrance Bass MD [address] [place] [address] Pulmonary Disease 08/04/20 Judson Crowder MD [address] [place] [address] Assigned PCP 07/10/22 Annemarie Moon MD [address] [facility] 200 [place] [address] Cardiology 03/01/24 Annemarie Moon MD [address] [facility] 200 [place] [address] Assigned Heart and Vascular Provider 03/09/24 documented as of this encounter
--- OUTSIDE RECORDS SUMMARY | 2024-04-27 08:02 | XMS_ITS | Encounter Summary ---
Author Organization [facility] Address [address] [place] [address] Care Team Providers Care Shot Tube Machine Tender Name Role Phone Melba Calderon MD Unavailable Terrance Bass MD Unavailable [phone] Judson Crowder MD Unavailable Woo Hicks PA-C Primary Care Provider Annemarie Moon MD Unavailable [phone] Reason for Visit * Reason Comments ER F/U [facility] ED on 0 02/26 for chest pain jaw pain and scapula pain, she went to stress test on 02/28 and her BP was too high to complete this, highest was 193/117 Back Pain Low back pain for th e last 2 months, pain radiates down her legs, worse later in the day, she had a decompression and disc removal 20 years ago Encounter Details Date Type Department Care Team (Late st Contact Info) Description 03/02/2024 8:00 AM CDT Office Visit [facility] [address] [place] [address] [place] [phone] Woo Hicks PA-C [address] [place] [address] Need for vaccination (Primary Dx); Episodic tension-type headache, not intractable; Benign hypertension; Hyperlipidemia LDL goal <130 Social History Tobacco Use Types Packs/Day Years [...] Sign Reading Time Taken Comments Blood Pressure 148/88 03/02/2024 8:01 AM CDT Pulse 73 03/02/2024 8:01 AM CDT Temperature 36.9 ??C (98.4 ??F) 03/02/2024 8:01 AM CD T Respiratory Rate - - Oxygen Saturation 98% 03/02/2024 8:01 AM CDT Inhaled Oxygen Concentration - - Weight 92.5 kg (204 lb) 03/02/2024 8:01 AM CDT Height - - Body Mass Index 32.93 11/10/2023 10:39 AM CDT documented in this encounter Progress Notes * Woo Hicks PA-C - 03/02/2024 8:00 AM CDT Assessment & Plan Episodic tension-type headache, not intractable - headaches persisting, PDMP reviewed, refills sentas below - vggpebimmz-sniksadqrpnsg-svmmantf (ESGIC) 50-325-40 MG tablet Dispense: 60 tablet; Refill: 0 - discussed pt should only be using Esgic for headaches and not for back pain. Refills sent should last at least 6 months. She understood this. Need for vaccination - TDAP VACCINE (Adacel, Boostrix) [[id number]] Benign hypertension - uncontrolled with recent chest pain and hypertensive episode requiring treatment at ER, we will plan to add diuretic as below - chlorthalidone (HYGROTON) 25 MG tablet Dispense: 30 tablet; Refill: 0 - continue candesartan 16mg every day - continue to take BP readings at home - low Na diet - follow-up with Cardiology and Echo stress test, as scheduled - recommend going to ER if chest pain recurs Hyperlipidemia LDL goal <130 - pt discontinued mistakenly, plan to restart as below - rosuvastatin (CRESTOR) 10 MG tablet Dispense: 90 tablet; Refill: 3 Follow-up in 1 month OV (address HTN) with labs or sooner if needed. No follow-ups on file. Bam Duran is a 63 year old, presenting for the following health issues: ER F/U ([facility] ED on 02/26 for chest pain jaw pain and scapula pain, she went to stress test on 02/28 and her BP was too high to complete this, highest was 193/117) and Back Pain (Low back painfor the last 2 months, pain radiates down her legs, worse later in the day, she had a decompressionand disc removal 20 years ago ) HPI Pt presents for ER discharge follow-up. She had onset of chest pain that radiated to her right scapula and bilateral jaws after walking to her car from a nail salon. She was worked-up in ED and treated with nitroglycerin x2 and Tordol. CTA without significant findings. She notes 1 episode of anginaover the past 1.5 years, just not as severe and resolving after 20 minutes. Was unable to complete echo stress test due to hypertension and was recommended this and follow-up with us and Cardiology within the next week. Her BP at home over the past few days have been ~160s/90s on average. Refilled candesartan last week and has been continuing 16mg every day. She has only missed 1 dose in the past 3 weeks. BP measurements at home have been 130s/80s before this episode in the ER. She stopped Crestor ~1 year ago, mistakenly thought this was handling BP and she though she no longer needed this. 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 She is walking a lot and joined a workout club. Her diet is stable. She has had increased back pain radiating down her legs. She had spine surgery ~20 years ago at [facility], but her provider has retired. She has been using methocarbamol and butalbital most days for thepain. She was using it daily, though hasn't used it for a few weeks as she has been out. Is trying stretches for back. PDMP reviewed. Recommended evaluation with spine surgeon to discuss leg and backpain. Review of Systems Constitutional, neuro, ENT, endocrine, pulmonary, cardiac, gastrointestinal, genitourinary, musculoskeletal, integument and psychiatric systems are negative, except as otherwise noted. Objective BP (!) 148/88 (BP Location: Right arm, Patient Position: Sitting, Cuff Size: Adult Large) Pulse 73 Temp 98.4 ??F (36.9 ??C) (Temporal) Wt 92.5 kg (204 lb) SpO2 98% BMI 32.93 kg/m?? Body mass index is 32.93 kg/m??. Physical Exam GENERAL: alert and no distress EYES: Eyes grossly normal to inspection, PERRL and conjunctivae and sclerae normal HENT: ear canals and TM's normal, nose and mouth without ulcers or lesions NECK: no adenopathy, no asymmetry, masses, or scars RESP: lungs clear to auscultation - no rales, rhonchi or wheezes CV: regular rate and rhythm, normal S1 S2, no S3 or S4, no murmur, click or rub, no peripheral edema ABDOMEN: soft, nontender, no hepatosplenomegaly, no masses and bowel sounds normal MS: no gross musculoskeletal defects noted, no edema NEURO: Normal strength and tone, mentation intact and speech normal PSYCH: mentation appears normal, affect normal/bright Signed Electronically by: Woo Hicks PA-C documented in this encounter Nursing Notes * Hemalatha Griffith CMA - 03/02/2024 8:00 AM CDT Chief Complaint Patient presents with ER F/U [facility] ED on 02/26 for chest pain jaw pain and scapula pain, she went to stress test on 02/28and her BP was too high to complete this, highest was 193/117 Back Pain Low back pain for the last 2 months, pain radiates down her legs, worse later in the day, she had adecompression and disc removal 20 years ago Pre-visit Screening: Immunizations: not up to date - tdap today Colonoscopy: is up to date Mammogram: is up to date Asthma Action Test/Plan: NA PHQ9: NA GAD7: NA Questioned patient about current smoking habits Pt. has never smoked. Ok to leave detailed message on voice mail for today's visit only Yes, phone # [phone] documented in this encounter Plan of Treatment Not on file documented as of this encounter Visit Diagnoses Diagnosis Need for vaccination- Primary Need for prophylactic vaccination and inoculation against unspecified single disease Episodic tension-type headache, not intractable Episodic tension type headache Benign hypertension Essential hypertension, benign Hyperlipidemia LDL goal <130 Other and unspecified hyperlipidemia documented in this encounter Additional Health Concerns Assessment Noted Time PHQ-9 Depression Total Score: 12 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 as of this encounter Care Teams Shot Tube Machine Tender Relationship Specialty Start Date End Date Woo Hicks PA-C [address] [address] [place] [address] PCP - General Family Medicine 08/26/22 Melba Calderon MD [address] [place] [address] Referring Physician Family Medicine 08/04/20 Terrance Bass MD [address] [place] [address] Pulmonary Disease 08/04/20 Judson Crowder MD [address] [place] [address] Assigned PCP 07/10/22 Annemarie Moon MD 1600 [facility] 200 [place] [address] Cardiology 03/01/24 documented as of this encounter
--- OUTSIDE RECORDS SUMMARY | 2024-04-27 08:02 | XMS_ITS | Encounter Summary ---
Author Organization [facility] Address [address] [place] [address] Care Team Providers Care Button Riveter Name Role Phone Melba Calderon MD Unavailable Terrance Bass MD Unavailable Judson Crowder MD Unavailable Woo Hicks PA-C Primary Care Provider Annemarie Moon MD Unavailable [phone] Annemarie Moon MD Unavailable Reason for Visit * Reason Onset Date Comments Appointment 02/28/2024 [place] or Armando sotomayor Encounter Details Date Type Department Care Team (Late st Contact Info) Description 02/28/2024 Telephone [facility] [address] [place] [phone] Unknown, Provider Appointment ([place] or Ciara ) Social History Tobacco Use Types Packs/Day Years [...] encounter Miscellaneous Notes * Telephone Encounter - Rebecca Conley - 02/28/2024 9:25 AM CDT [facility] Phone Message May a detailed message be left on voicemail: yes Reason for Call: Appointment Intake Referring Provider Name: Sobia Guzman MD Diagnosis and/or Symptoms: Exercise Stress Echocardiogram Action Taken: Other: cardiology Travel Screening: Not Applicable Thank you! 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 documented as of this encounter Care Teams Button Riveter Relationship Specialty Start Date End Date Woo Hicks PA-C [address] [address] [place] [address] PCP - General Family Medicine 08/26/22 Melba Calderon MD [address] [place] [address] Referring Physician Family Medicine 08/04/20 Terrance Bass MD [address] [place] [address] Pulmonary Disease 08/04/20 Judson Crowder MD [address], [id number] [place] [address] Assigned PCP 07/10/22 Annemarie Moon MD [address] [facility] [address] [place] [address] Cardiology 03/01/24 Annemarie Moon MD [address] [facility] [address] [place] [address] Assigned Heart and Vascular Provider 03/09/24 documented as of this encounter
--- OUTSIDE RECORDS SUMMARY | 2024-04-27 08:02 | XMS_ITS | Encounter Summary ---
Author Organization [facility] Address [address] [place] [address] Care Team Providers Care Retail Bakery Manager Name Role Phone Melba Calderon MD Unavailable [phone] Terrance Bass MD Unavailable [phone] Judson Crowder MD Unavailable Woo Hicks PA-C Primary Care Provider [phone] Annemarie Moon MD Unavailable [phone] Reason for Referral * Consultation (Routine: Next available opening) - Pending Review Specialty Diagnoses / Procedures Referred By Contjay t Referred To Contact Cardiovascular Disease Diagnoses Chest pain, unspecified type Elevated blood pressure reading with diagnosis of hypertension Coronary artery disease involving mescal[place] apache coronary artery of mescal[place] 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 [address] [place] [address] Referral ID Status Reason Start Date Expiration Date V isits Requested Visits Authorized [id number] Pending Review 03/08/2024 03/08/2025 1 1 Question Answer Follow-up with: Self Reason for follow-up: General Cardiology Scheduling Instructions: [facility] will call you to coordinate your care as prescribed by your provider. If you have concerns about scheduling, please call [phone]. Comments [facility] will call you to coordinate your care as prescribed by your provider. If you have concerns about scheduling, please call [phone]. * Diagnostic Imaging CT Scan (Routine) - Closed Specialty Diagnoses / Procedures Referred By Corey lucero Referred To Contact Radiology. Diagnoses Chest pain, unspecified type Elevated blood pressure reading with diagnosis of hypertension Coronary artery disease involving mescal[place] apache coronary artery of [place]cal[place] apache heart with other form of angina pectoris (H) Procedures CT Coronary Artery Angio w Calcium Score Annemarie Moon MD [address] [facility] [address] [place] [address] [facility] [address] [place] [phone] Referral ID Status Reason Start Date Expiration Date Visits Re quested Visits Authorized [id number] Closed 03/08/2024 03/08/2025 1 1 Reason for Visit * Reason Comments Consult * Consultation (Routine: Next available opening) - Pending Review Specialty Diagnoses / Procedures Referred By Corey lucero Referred To Contact Cardiovascular Disease Diagnoses Chest pain, unspecified type Elevated blood pressure reading with diagnosis of hypertension Sobia Guzman MD [facility] [address] [address] Referral ID Status Reason Start Date Expiration Date V isits Requested Visits Authorized [id number] Pending Review 02/27/2024 02/26/2025 1 1 Encounter Details Date Type Department Care Team (Late st Contact Info) Description 03/08/2024 12:50 PM CDT Office Visit [facility] [address] [place] [phone] Annemarie Moon MD [address] [facility] [address] [place] [address] Chest pain, unspecified type; Elevated blood pressure reading with diagnosis of hypertension; Coronary artery disease involving mescalero apache coronary artery of mescal[place] apache heart with other form of angina pectoris (H) Social History Tobacco Use Types Packs/Day Years [...] Sign Reading Time Taken Comments Blood Pressure 124/75 03/08/2024 12:43 PM CDT Pulse 75 03/08/2024 12:43 PM CDT Temperature 36.6 ??C (97.8 ??F) 03/08/2024 12:43 PM C DT Respiratory Rate 16 03/08/2024 12:43 PM CDT Oxygen Saturation 97% 03/08/2024 12:43 PM CDT Inhaled Oxygen Concentration - - Weight 92.3 kg (203 lb 6.4 oz) 03/08/2024 12:43 PM CDT Height 167.6 cm (5' 6) 03/08/2024 12:43 PM CDT Body Mass Index 32.83 03/08/2024 12:43 PM CDT documented in this encounter Progress Notes * Annemarie Moon MD - 03/08/2024 12:50 PM CDT Images from the original note were not included. HEART CARE ENCOUNTER CONSULTATON NOTE [facility] [phone] Assessment/Recommendations Assessment: 1. Chest discomfort: Intermittent chest pain with jaw pain. She has had a recent stress test and recommend proceeding with a CT coronary angiogram for further evaluation. 2. Hypertension: Now well-controlled. Is possible her symptoms could be related to hypertensive urgency 3. Dyslipidemia: Due for fasting lipids. She has stopped her Crestor for a year and just restarted it last week 4. Family history of premature coronary disease Plan: 1. CT coronary angiogram with calcium scoring 2. Check labs including BNP, lipids 3. Continue chlorthalidone follow-up in a year, earlier if needed History of Present Illness/Subjective HPI: Renee King is a 63 year old female with history of hypertension, depression, hyperlipidemia, family history of premature coronary disease who I am seeing today for initial consultation for chest pain. She has had episodes of jaw and chest pain in the past. She underwent a CT coronary angiogram in 2016 that showed normal coronaries. Periodic workup since that time. She underwent an exercise stress echo in 2021 that was unremarkable. She recently went to the ED for an episode of discomfort on 02/27/2024. She was getting her nails done and suddenly developed jaw pain. She left the nail salon and started developing chest pain and pain in the right scapula. Blood pressure was very elevated at 200/110. Troponins were negative and EKG unchanged. About a week ago she was started on chlorthalidone and blood pressures have been improving. She brought her blood pressure numbers from home and they were quite poorly controlled prior to starting the new medication. She stopped Crestor about a year ago and just restarted it last week. She stopped it due to muscle weakness and concerned abo ut side effects. Before starting her statin in the past her LDL was as high as 195. She has a significant family history of heart disease. With multiple brothers having heart attacks and bypass surgery at very young ages. She does not exercise regularly but is active at work. 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 Her chest and jaw pain is not necessarily exertional in nature and can occur randomly and sometimes she wakes up with it. Echocardiogram 02/29/2024 Global and regional left ventricular function is normal with an EF of 60-65%. Right ventricular function, chamber size, wall motion, and thickness are normal. Pulmonary artery systolic pressure cannot be assessed. No significant valvular abnormalities present. The inferior vena cava is normal. No pericardial effusion is present. There is no prior study for direct comparison. Exercise stress echocardiogram 2021 FINAL CONCLUSIONS 1.Normal stress echocardiogram without evidence of stress-induced ischemia. 2.Appropriate increase in LV function with exercise. There are no inducible wall motion abnormalities noted. 3.Exercise produced shortness of breath and leg fatigue.Exercise did not seem to reproduce presenting chest pain or symptoms. 4.Stress ECG is negative for myocardial ischemia. Frequent PACs, atrial couplets, short bursts of atrial tachycardia, and aberrant beats noted with stress. 5.Good exercise tolerance, achieving 10.3 METs and 96.9% of max predicted heart rate. 6.Normal left ventricular chamber size.Estimated left ventricular ejection fraction is 65%. No regional wall motion abnormalities. 7.No significant valvular abnormalities. CT coronary angiogram 2016 1. Normal coronary arteries. 2. No coronary plaque present. 3. Symptoms are not related to a coronary lesion. The longitudinal plan of care for the diagnosis(es)/condition(s) as documented were addressed during this visit. Due to the added complexity in care, I will continue to support Renee in the subsequent management and with ongoing continuity of care. Physical Examination Review of Systems Vitals: BP 124/75 (BP Location: Left arm, Patient Position: Sitting, Cuff Size: Adult Large) Pulse 75 Temp 97.8 ??F (36.6 ??C) (Oral) Resp 16 Ht 1.676 m (5' 6) Wt 92.3 kg (203 lb 6.4 oz) SpO2 97% BMI 32.83 kg/m?? BMI= Body mass index is 32.83 kg/m??. Wt Readings from Last 3 Encounters: 03/08/24 92.3 kg (203 lb 6.4 oz) 03/02/24 92.5 kg (204 lb) 11/10/23 93 kg (205 lb) General Appearance: no distress, normal body habitus ENT/Mouth: membranes moist, no oral lesions or bleeding gums. EYES: no scleral icterus, normal conjunctivae Neck: no carotid bruits or thyromegaly Chest/Lungs: lungs are clear to auscultation Cardiovascular: Regular. Normal first and second heart sounds with no murmur no edema bilaterally Abdomen: bowel sounds are present Extremities: no cyanosis or clubbing Skin: no xanthelasma, warm. 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 Medical History Surgical History Family History Social History Past Medical History: Diagnosis Date Allergic rhinitis, cause unspecified Depression Esophageal reflux h/o Mumps Hypertension Sinusitis (chronic) Sleep apnea c pap Varicella Past Surgical History: Procedure Laterality Date ARTHROPLASTY SHOULDER BIOPSY BREAST 07/08/2011 Procedure:BIOPSY BREAST; Left Breast Duct Exploration, Excisional Biopsy; Surgeon:ELISABETH FLOR; Location:[facility] OR DISCECTOMY LUMBAR MINIMALLY INVASIVE ONE LEVEL EYE SURGERY HYSTERECTOMY with bilateral oophorectmomy LAPAROSCOPIC CHOLECYSTECTOMY MOHS MICROGRAPHIC PROCEDURE 2006 Left anterior chest Nasal antral windows 1986 TONSILLECTOMY, ADENOIDECTOMY, COMBINED 1986 Z[facility] APPENDECTOMY Family History Problem Relation Age of Onset Neurologic Disorder Mother polio Cancer Mother gastric Hypertension Mother Hyperlipidemia Mother Hypertension Father Heart Disease Father 8 vessel bypass EYE* Father Hyperlipidemia Father Cerebrovascular Disease Father Hypertension Sister Hyperlipidemia Sister Myocardial Infarction Sister No Known Problems Sister C.A.D. Brother Heart Disease Brother mi C.A.D. 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 Not Asked Social History Narrative Not on file Social Determinants of Health Financial Resource Strain: Low Risk (07/17/2023) Received from [employer] Financial Resource Strain Difficulty of Paying Living Expenses: 3 Difficulty of Paying Living Expenses: Not on file Food Insecurity: No Food Insecurity (07/17/2023) Received from [employer] Food Insecurity Worried About Running Out of Food in the Last Year: 1 Transportation Needs: No Transportation Needs (07/17/2023) Received from [employer] Transportation Needs Lack of Transportation (Medical): 1 Physical Activity: Not on file Stress: Not on file Social Connections: Socially Integrated (07/17/2023) Received from [employer] Social Connections Frequency of Communication with Friends and Family: 0 Interpersonal Safety: Not on file Housing Stability: Low Risk (07/17/2023) Received from [employer] Housing Stability Unable to Pay for Housing in the Last Year: 1 Medications Allergies Current Outpatient Medications Medication Sig Dispense Refill albuterol (ALBUTEROL) 108 (90 BASE) MCG/ACT inhaler Inhale 1-2 puffs into the lungs every 4 hours as needed 1 Inhaler 11 albuterol (PROAIR HFA/PROVENTIL HFA/VENTOLIN HFA) 108 (90 Base) MCG/ACT inhaler Inhale 2 puffs intothe lungs every 6 hours as needed for shortness of breath, wheezing or cough 18 g 3 buPROPion (WELLBUTRIN XL) 300 MG 24 hr tablet Take 1 tablet (300 mg) by mouth daily 90 tablet 3 hcsabigsdc-rjmjfmszfjwvp-dvixuvvw (ESGIC) 50-325-40 MG tablet Take 1 tablet by mouth every 4 hours as needed for pain 60 tablet 0 candesartan (ATACAND) 16 MG tablet Take 1 tablet (16 mg) by mouth daily 90 tablet 1 chlorthalidone (HYGROTON) 25 MG tablet Take 1 tablet (25 mg) by mouth daily 30 tablet 0 clindamycin (CLEOCIN T) 1 % external lotion APPLY A THIN LAYER TO AFFECTED AREA ON FACE AND TRUNK 1-2X DAILY, ONGOING. estradiol (ESTRACE) 1 MG tablet Take 1.5 tablets (1.5 mg) by mouth daily 135 tablet 0 fluticasone (ARNUITY ELLIPTA) 100 MCG/ACT inhaler Inhale 1 puff into the lungs daily 30 each 6 gabapentin (NEURONTIN) 300 MG capsule Take 1 capsule (300 mg) by mouth daily 90 capsule 3 hydrOXYzine (ATARAX) 25 MG tablet Take 25 mg by mouth 3 times daily as needed for itching meclizine (ANTIVERT) 25 MG tablet Take 1 tablet (25 mg) by mouth 3 times daily as needed for dizziness 60 tablet 0 metroNIDAZOLE (METROCREAM) 0.75 % external cream APPLY A THIN LAYER TO AFFECTED AREA 1-2X DAILY, ONGOING. omeprazole (PRILOSEC) [address] capsule Take 1 capsule (40 mg) by mouth daily 90 capsule 3 Respiratory Therapy Supplies (CARETOUCH 2 CPAP HOSE DIRECTOR OF INTELLIGENCE) [facility] CPAP Editorially model Eson2 in size small nasal mask x1/3month with nasal cushion x2/mo rosuvastatin (CRESTOR) 10 MG tablet Take 1 tablet (10 mg) by mouth daily 90 tablet 3 vilazodone (VIIBRYD) 20 MG TABS tablet TAKE ONE-HALF TABLET BY MOUTH EVERY MORNING FOR 7 DAYS, THENINCREASE TO 1 TABLET BY MOUTH EVERY MORNING. TAKE WITH FOOD methocarbamol (ROBAXIN) 750 MG tablet TAKE 1 TABLET (750 MG) BY MOUTH NIGHTLY NEEDED FOR MUSCLE SPASMS 30 tablet 0 montelukast (SINGULAIR) 10 MG tablet TAKE 1 TABLET BY MOUTH EVERYDAY AT BEDTIME 90 tablet 0 Allergies Allergen Reactions Lisinopril Cough Losartan Other (See Comments) Insomnia Insomnia Vicryl [Suture] Lab Results Chemistry/lipid CBC Cardiac Enzymes/BNP/TSH/INR Recent Labs Lab Test 07/08/23 0000 CHOL 199 HDL 90 LDL 100 TRIG 46 CHOLHDLRATIO 2 Recent Labs Lab Test 07/08/23 0000 LDL 100 Recent Labs Lab Test 02/27/24 1330 NA 141 POTASSIUM 3.8 CHLORIDE 105 CO2 27 GLC 96 BUN 11.9 CR 0.83 GFRESTIMATED 79 SANDY 10.0 Recent Labs Lab Test 02/27/24 1330 07/08/23 0000 08/07/21 0548 CR 0.83 0.98 0.84 No results for input(s): A1C in the last 14494 hours. Recent Labs Lab Test 02/27/24 1330 WBC 6.6 HGB 12.2 HCT 35.9 MCV 94 PLT 260 Recent Labs Lab Test 02/27/24 1330 06/17/22 1345 08/07/21 0548 HGB 12.2 13.8 12.6 No results for input(s): TROPONINI in the last 66025 hours. No results for input(s): BNP, NTBNPI, NTBNP in the last 48981 hours. No results for input(s): TSH in the last 06487 hours. No results for input(s): INR in the last 33861 hours. Annemarie Moon MD documented in this encounter Plan of Treatment Scheduled Referrals Name Type Priority Associated Diagnoses Orde r Schedule Follow-Up with Cardiology Referral Routine: Next available opening Chest pain, unspecified type Elevated blood pressure reading with diagnosis of hypertension Coronary artery disease involving [place] apache coronary artery of [place] apache heart with other form of angina pectoris (H) Expected: 03/08/2025 (Approximate), Expires: 03/08/2025 documented as of this encounter Procedures Procedure Name Priority Date/Time Associated Diagnosis Comments TSH WITH FREE T4 REFLEX Routine 03/08/2024 1:30 PM CDT Elevated blood pressure reading with diagnosis of hypertension Coronary artery disease involving [place] apache coronary artery of [place] apache heart with other form of angina pectoris (H) LIPID REFLEX TO DIRECT LDL PANEL Routine 03/08/2024 1:30 PM CDT Elevated blood pressure reading with diagnosis of hypertension Coronary artery disease involving [place] apache coronary artery of [place] apache heart with other form of angina pectoris (H) BASIC METABOLIC PANEL Routine 03/08/2024 1:30 PM CDT Elevated blood pressure reading with diagnosis of hypertension Coronary artery disease involving [place] apache coronary artery of [place] apache heart with other form of angina pectoris (H) documented in this encounter Results * CT Coronary Artery Angio w Calcium [...] Image post processing was performed on a [employer] workstation. This study was performed after [...] as heart attack and stroke. MANAGEMENT The [place] [employer] Association/[place] College of Cardiology (AHA/ACC) 2018 Guideline on [...] online on the [employer] website (https://www.craven-nhlbi.org/MESACHDRisk/MesaRiskScore/RiskScore.aspx). (Marvin RL, et al. J Am Anette Cardiol. 2015 Apr 13;66(15):1643-53.) However, note that these are general recommendations only, and as with all such matters, the personal physician should be consulted regarding recommendations appropriate for the individual. If further guidance is needed, you can schedule an appointment with one of our Preventive Cardiologists ([email or web address]). References: 1. 2018 AHA/ACC/AACVPR/AAPA/ABC/ACPM/ADA/AGS/APhA/ASPC/NLA/PCNA Guideline on the [...] LAB - BLOOD ORDERABL ES [facility] [address] [facility] [place] [address] * (ABNORMAL) Lipid panel reflex to direct [...] LAB - BLOOD ORDERABL ES [facility] [address] [facility] [place] [address], [facility] * (ABNORMAL) Basic metabolic panel (03/08/2024 1:30 PM CDT) Sodium 139 135 - 145 mmol/L 03/08/2024 [...] LAB - BLOOD ORDERABL ES [facility] [address] [facility] [place] [address] documented in this encounter Visit Diagnoses Diagnosis Chest pain, unspecified type Elevated blood pressure reading with diagnosis of hypertension Coronary artery disease involving [place] apache coronary artery of [place] apache heart with other form of angina pectoris (H) Chest pain, unspecified type Elevated blood pressure reading with diagnosis of hypertension Coronary artery disease involving [place] apache coronary artery of [place] apache heart with other form of angina pectoris (H) documented in this encounter Additional Health Concerns Assessment Noted Time PHQ-9 Depression Total Score: 12 06/30/ 023 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 documented as of this encounter Care Teams Retail Bakery Manager Relationship Specialty Start Date End Date Woo Hicks PA-C [address] [place] [address] PCP - General Family Medicine 08/26/22 Melba Calderon MD [address] [place] [address] Referring Physician Family Medicine 08/04/20 Terrance Bass MD [address] [place] [address] Pulmonary Disease 08/04/20 Judson Crowder MD [address], [address] [address] Assigned PCP 07/10/22 Annemarie Moon MD [address] [facility] [address] [place] [address] Cardiology 03/01/24 documented as of this encounter
--- OUTSIDE RECORDS SUMMARY | 2024-04-27 08:02 | XMS_ITS | Referral Summary ---
Author Organization [facility] Address [address] [place] [id number] Care Team Providers Care Matrix Drier Tender Name Role Phone Melba Calderon MD Unavailable Terrance Bass MD Unavailable [phone] Judson Crowder MD Unavailable [phone] Woo Hicks PA-C Primary Care Provider [phone] Annemarie Moon MD Unavailable Annemarie Moon MD Unavailable [phone] Encounters Date Type Department Care Team Description 04/26/2024 MyC Medical Advice [facility] [address] [phone] Woo Hicks PA-C Medication Question 03/28/2024 Travel 03/28/2024 8:00 AM CDT Office Visit [facility] [address] [phone] Woo Hicks PA-C Recurrent major depressive disorder, in full remission (H); Benign hypertension; Mild intermittent asthma without complication; Seasonal allergic rhinitis due to other allergic trigger; Gastroesophageal reflux disease with esophagitis without hemorrhage; Bilateral sciatica; Restless legs syndrome (RLS) 03/23/2024 Refill [facility] [address] [place] [address] [address] [place] [address] Woo Hicks PA-C Medication Refill 03/22/2024 Refill [facility] [address] [address] [place] [address] Woo Hicks PA-C Medication Refill 03/21/2024 Travel 03/21/2024 12:34 PM CDT - 03/21/2024 11:59 PM CDT Hospital Encounter [facility] [address] [place] [address] Annemarie Moon MD Chest pain, unspecified type; Elevated blood pressure reading with diagnosis of hypertension; 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 (H) Discharge Disposition: Home or Self Care 03/08/2024 Travel 03/08/2024 12:50 PM CDT Office Visit [facility] [address] [place] [phone] Annemarie Moon MD Chest pain, unspecified type; Elevated blood pressure reading with diagnosis of hypertension; 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 (H) 03/03/2024 Travel 03/02/2024 Travel 03/02/2024 8:00 AM CDT Office Visit [facility] [address] [place] [phone] Woo Hicks PA-C Need for vaccination (Primary Dx); Episodic tension-type headache, not intractable; Benign hypertension; Hyperlipidemia LDL goal <130 02/29/2024 Travel 02/29/2024 2:49 PM CDT - 02/29/2024 11:59 PM CDT Hospital Encounter [facility] [address] [place] [phone] Woo Hicks PA-C Chest pain, unspecified type; Elevated blood pressure reading with diagnosis of hypertension Discharge Disposition: Home or Self Care 02/28/2024 Telephone [facility] [address] [facility] [address] [place] [phone] Unknown, Provider Appointment (Krystal or Ciara ) 02/27/2024 Travel 02/27/2024 1:21 PM CDT - 02/27/2024 5:05 PM CDT Emergency [facility] Emergency Dept [address] [place] [phone] Sobia Guzman MD Chest pain, unspecified type; Hepatic steatosis; Elevated blood pressure reading with diagnosis of hypertension Discharge Disposition: Home or Self Care 02/27/2024 Telephone [facility] [address] [place] [address] None Chest Pain 02/18/2024 Refill [facility] [address] [place] [address] [address] [place] [phone] Woo Hicks PA-C Medication Refill from Last 3 Months Allergies Active Allergy Reactions Criticality Noted Date [...] facility,Hyperlipide kimi LDL goal <130,Benign hypertension,Need for drtsxyfrea-wfokezx-n ertussis (Tdap) vaccine, adult/adolescent,Uns pecified episodic mood disorder,Obesity Inhale 1-2 puffs into the lungs every 4 hours as needed 1 Inhaler 11 07/03/2013 Active Respiratory Therapy Supplies (CARETOUCH 2 CPAP 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) MISC CPAP Hailo & ImmusanT model Eson2 in size small nasal mask [...] disorder, not elsewhere classified 08/07/19 03 07/07/2010 Immunizations Name Administration Dates Next Due COVID-19 MONOVALENT 12+ (Pfizer) 04/20/2021,07/18,07/14/2020 Flu, Unspecified 03/04/2016, 5,04/10/2012,2010,05/18/2010,05/07/2009,04/17/2007,1 K4c2-22 Novel Flu- Nasal 05/07/2009 Influenza (H1N1) 05/07/2009 [...] 10/25/2006 Zoster recombinant adjuvante d (SHINGRIX) 04/10/2018,01/02/2018 Social History Tobacco Use Types Packs/Day Years [...] 03/28/2024 8:06 AM CDT Plan of Treatment Not on file Procedures Procedure Name Priority Date/Time Associated Diagnosis Comments BASIC METABOLIC PANEL (BFP) Routine 03/28/2024 11:30 AM CDT Benign hypertension MA COLLECTION VENOUS BLOOD VENIPUNCTURE Routine 03/28/2024 8:55 AM CDT Benign hypertension CT CORONARY ARTERY ANGIO W CALCIUM SCORE STAT 03/21/2024 1:38 PM CDT Chest pain, unspecified type Elevated blood pressure reading with diagnosis of hypertension 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 (H) RADIOLOGIST CONSULT FOR CARDIOLOGY STAT 03/21/2024 1:38 PM CDT Chest pain, unspecified type Elevated blood pressure reading with diagnosis of hypertension 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 (H) TSH WITH FREE T4 REFLEX Routine 03/08/2024 1:30 PM CDT Elevated blood pressure reading with diagnosis of hypertension 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 (H) LIPID REFLEX TO DIRECT LDL PANEL Routine 03/08/2024 1:30 PM CDT Elevated blood pressure reading with diagnosis of hypertension 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 (H) BASIC METABOLIC PANEL Routine 03/08/2024 1:30 PM CDT Elevated blood pressure reading with diagnosis of hypertension 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 1. ??Hepatic steatosis. 2. ??Please refer to academic advisor's dictation for the cardiac CT report. 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 COMPARISON: CT 02/27/2024 FINDINGS: ?? LIMITED CHEST: Bilateral dependent atelectasis. LIMITED MEDIASTINUM: Negative. LIMITED UPPER ABDOMEN: Hepatic steatosis. Procedure Note Johann Nguyen MD - 03/21/2024 OVERREAD: DETAILED [facility] EXTRACARDIAC OVERREAD OF CARDIAC CT LOCATION: [facility] DATE: 03/21/2024 INDICATION: Chest pain, unspecified type, Elevated blood pressure readingwith diagnosis of hypertension, Coronary artery disease involving nativecoronary artery of mohegan heart with other form of angina pectoris (H24) TECHNIQUE: Dose reduction techniques were used. COMPARISON: CT 02/27/2024 FINDINGS: LIMITED CHEST: Bilateral dependent atelectasis. LIMITED MEDIASTINUM: Negative. LIMITED UPPER ABDOMEN: Hepatic steatosis. IMPRESSION: 1. Hepatic steatosis. 2. Please refer to academic advisor's dictation for the cardiac CT report. Annemarie [...] as heart attack and stroke. MANAGEMENT The [place] [employer]/[place] [employer] (AHA/ACC) 2018 Guideline on [...] appointment with one of our Preventive Cardiologists ([email or web address]). References: 1. 2018 AHA/ACC/AACVPR/AAPA/ABC/ACPM/ADA/AGS/APhA/ASPC/NLA/PCNA Guideline on the [...] LAB - BLOOD ORDERABL ES [facility] [place] [address] [facility] [address] [facility], [address] [place] [phone] * (ABNORMAL) Lipid panel reflex to direct [...] LAB - BLOOD ORDERABL ES [facility] [address], [address] [place] [address] * (ABNORMAL) Basic metabolic panel (03/08/2024 1:30 [...] 10:29 PM CDT [facility] Comment:eGFR calculated 2020 CKD-EPI equation. Calcium 10.4 8.8 - [...] LAB - BLOOD ORDERABL ES [facility] [place] [address] [facility] [address] Building, [address] [place] [address] * ECHO COMPLETE (02/29/2024 3:49 PM CDT) LVEF 60-65% CARDIOLOGY RESULTS Anatomical Region Laterality Modality Echocardiography 02/29/2024 2:59 PM CDT Narrative 02/29/2024 4:00 PM CDT [id number]^NIGHAT^GENEVIEVE^RUDI [facility] [address] [place] [address] Name: JAMISON KING : 1960 Study Date: 02/29/2024 02:59 PM Age: 63 yrs Gender: Female Patient Location: [facility] Reason For Study: Chest pain, unspecified type, [...] Procedure Note Jung Gomez MD - 02/29/2024 [id number]^NIGHAT^GENEVIEVE^RUDI [facility] [address] [place] [address] Name: JAMISON KING : 1960 Study Date: 02/29/2024 02:59 PM Age: 63 yrs Gender: Female Patient Location: [facility] Reason For Study: Chest pain, unspecified type, [...] of2 resultswithin the time period is included. [facility] Troponin T, High Sensitivity <6 <=14 ng/L [...] PM CDT 02/27/2024 4:00 PM CDT Sobia Guzman MD LAB - BLOOD ORDERABL ES LABORATORY [facility] Lab [address] 1[address] floor, [address] [place] [address], [facility] [phone] * CT Aortic Survey w Contrast (02/27/2024 3:33 PM CDT) Anatomical Region Laterality Modality Abdomen/Pelvis, Chest, SUBRA D CT BODY, UMP CT CHEST, UMP CT ABDOMEN PELVIS, RAD CT Computed Tomography Impressions 02/27/2024 3:49 PM CDT IMPRESSION: 1. ??No evidence for aortic aneurysm or dissection. 2. ??Diffuse hepatic steatosis. JOSE MATIAS MD SYSTEM ID: ??[id number] Narrative 02/27/2024 3:[address] AORTIC [...] hepatic steatosis. JOSE MATIAS MD SYSTEM ID: [id number] Sobia Guzman MD IMG CT ORDERABLES * EKG 12 lead (02/27/2024 1:46 PM CDT) Systolic Blood Pressure mmHg RADIOLOGY RESULTS Diastolic Blood Pressure mmHg RADIOLOGY RESULTS Ventricular Rate 65 BPM RAD IOLOGY RESULTS Atrial Rate 65 BPM RADIOLOG Y RESULTS MA Interval 172 ms RADIOLOG Y RESULTS QRS Duration 90 ms RADIOLO GY RESULTS QT 412 ms RADIOLOGY RESULTS QTc 428 ms RADIOLOGY RESULTS P [place] 52 degrees RADIOLOGY RESULTS R AXIS 102 degrees RADIOLOGY RESULTS T [place] 42 degrees RADIOLOGY RESULTS Interpretation ECG Sinus rhythm Possible Left atrial enlargement Rightward axis Septal infarct , age undetermined Abnormal ECG When compared with ECG of 07-Aug-2021 05:34, Septal infarct is now Present Confirmed by GENERATED REPORT, COMPUTER ([id number]), editor city [place]ES ([id number]) on 02/28/2024 11:28:34 AM RADIOLOGY RESULTS 02/27/2024 1:46 PM CDT 02/28/2024 11:28 AM CDT Sobia Guzman MD ECG ORDERABLES RADIOLOGY RESULTS * Extra Purple Top Tube (02/27/2024 1:30 PM CDT) Hold Specimen JI 02/27/2024 2:47 PM CDT LABORATORY Blood STRUCTURE OF LEFT UPPER LIMB / Unknown Venipuncture / Unknown 02/27/2024 1:30 PM CDT 02/27/2024 1:42 PM CDT Narrative Authorizing Provider Result Elyssa Guzman MD LAB - BLOOD ORDERABL ES [facility] [address] 1[address] floor, [address] [place] [address], [place] [phone] * Extra Green Top (Calio Heparin) Tube (02/27/2024 1:30 PM CDT) Hold Specimen [facility] 02/27/2024 2:47 PM CDT LABORATORY Blood STRUCTURE OF LEFT UPPER LIMB / Unknown Venipuncture / Unknown 02/27/2024 1:30 PM CDT 02/27/2024 1:42 PM CDT Sobia Guzman MD LAB - BLOOD ORDERABL ES LABORATORY [facility] [address] 1[address] floor, [address] [place] [address], [place] [phone] * Extra Red Top Tube (02/27/2024 1:30 PM CDT) Hold Specimen [facility] 02/27/2024 2:47 PM CDT LABORATORY Blood STRUCTURE OF LEFT UPPER LIMB / Unknown Venipuncture / Unknown 02/27/2024 1:30 PM CDT 02/27/2024 1:42 PM CDT Narrative Authorizing Provider Result Elyssa Guzman MD LAB - BLOOD ORDERABL ES LABORATORY [facility] [address] 1[address] floor, [address] [place] [address], [place] [phone] * Extra Blue Top Tube (02/27/2024 1:30 PM CDT) Hold Specimen [facility] 02/27/2024 2:47 PM CDT LABORATORY Blood STRUCTURE OF LEFT UPPER LIMB / Unknown Venipuncture / Unknown 02/27/2024 1:30 PM CDT 02/27/2024 1:42 PM CDT Sobia Guzman MD LAB - BLOOD ORDERABL ES LABORATORY [facility] [address] 1[address] floor, [address] [place] [address], [facility] [phone] * CBC with platelets and differential (02/27/2024 [...] % Eosinophils 2 % 02/27/2024 1:47 PM CDT LABORATORY % Basophils 1 % 02/27/2024 1:47 PM CDT LABORATORY % Immature Granulocytes 0 % 02/27/2024 [...] MD LAB - BLOOD ORDERABL ES LABORATORY [facility] [address] 1st floor, [address] [place] [address], [facility] [phone] * EKG 12-lead complete w/read - Clinics (02/27/2024 12:27 PM CDT) Shayla Dumont APRN GUN PERFORATOR ECG ORDERABL ES * MA Screening Bilateral w/ Jerome (07/15/2023) MAMMOGRAM Anatomical Region Laterality Modality Breast Bilateral Other Narrative 07/15/2023 [id number] [facility], [address] [place] [address] [facility] : 1960 Req Phys: Woo Hicks PA-C Patient name: JAMISON KING Clinic: [facility] Dept No: [id number] MAMMOGRAM SCREENING JEROME BILATERAL Exam Date: 07/15/2023 EXAM: MAMMOGRAM SCREENING JEROME BILATERAL LOCATION: [facility] DATE: 07/15/2023 INDICATION: Asymptomatic. Screening Mammogram. COMPARISON: [...] Page 1 of 1 Woo Hicks PA-C [facility] MAMMOGRAPHY ORDE RABLES * COLONOSCOPY (04/28/2012) Provider Abstract PROCEDURES * A THIN LAYER PAP SCREEN (01/06/2004 12:00 AM CDT) Copath Report Patient Name: JAMISON KING MR#: [id number] Specimen #: [id number] Collected: 01/06/2004 Received: 01/08/2004 Reported: 01/13/2004 12:28 [...] BHAVANA Lui (ASCP) Processed and screened at [facility] CLINICAL HISTORY: Hysterectomy, Previous normal pap: 1999, COPATH 01/06/2004 01/08/2004 12: 03 PM CDT Artem Torres MD LABORATORY COPATH from Last 3 Months or Most Recently Relevant to Health Maintenance Care Teams Matrix Drier Tender Relationship Specialty Start Date End Date Woo Hicks PA-C [address] [address] PCP - General Family Medicine 08/26/22 Melba Calderon MD [address] [place] [address] Referring Physician Family Medicine 08/04/20 Terrance Bass MD [address] [place] [address] Pulmonary Disease 08/04/20 Judson Crowder MD [id number] [place] [address] Assigned PCP 07/10/22 Annemarie Moon MD [address] [facility] [address] [place] [address] Cardiology 03/01/24 Annemarie Moon MD [address] [facility] [address] [place] [address] Assigned Heart and Vascular Provider 03/09/24
--- OUTSIDE RECORDS SUMMARY | 2024-04-27 08:02 | XMS_ITS | Encounter Summary ---
Author Organization [facility] Address [address] [place] [address] Care Team Providers Care Category Director Name Role Phone Melba Calderon MD Unavailable [phone] Terrance Bass MD Unavailable Judson Crowder MD Unavailable [phone] Woo Hicks PA-C Primary Care Provider Annemarie Moon MD Unavailable [phone] Annemarie Moon MD Unavailable [phone] Reason for Visit * Reason Comments Recheck Medication Encounter Details Date Type Department Care Team (Late st Contact Info) Description 03/28/2024 8:00 AM CDT Office Visit [facility] [address] [phone] Woo Hicks PA-C [address] [address] Recurrent major depressive disorder, in full remission (H); Benign hypertension; Mild intermittent asthma without complication; Seasonal allergic rhinitis due to other allergic trigger; Gastroesophageal reflux disease with esophagitis without hemorrhage; Bilateral sciatica; Restless legs syndrome (RLS) Social History Tobacco Use Types Packs/Day Years [...] 20 03/28/2024 8:06 AM CDT Oxygen Saturation - - Inhaled Oxygen Concentration - - Weight 91.6 kg (202 lb) 03/28/2024 8:06 AM CDT Height 167.6 cm (5' 6) 03/28/2024 8:06 AM CDT Body Mass Index 32.6 03/28/2024 8:06 AM CDT documented in this encounter Progress Notes * Woo Hicks PA-C - 03/28/2024 8:00 AM CDT Assessment & Plan Recurrent major depressive disorder, in full remission (H24) - with recent severe episodes/outbursts, seemingly uncontrolled on vilazodone 30mg and Wellbutrin 300mg, we will plan to increase dose of Wellbutrin to 450mg daily for a short amount of time, but we will plan to defer for Ellen Engel forfurther management. - buPROPion (WELLBUTRIN XL) 150 MG 24 hr tablet Dispense: 90 tablet; Refill: 0 - continue vilazodone 30mg daily - follow-up with Ellen Engel and discuss medications Benign hypertension - improved, with better control and reading in clinic today within range, refilled without changes - chlorthalidone (HYGROTON) 25 MG tablet Dispense: 90 tablet; Refill: 1 - candesartan (ATACAND) 16 MG tablet Dispense: 90 tablet; Refill: 1 - VENOUS COLLECTION - Basic Metabolic Panel (BFP) - continue to monitor BP at home - low Na diet Mild intermittent asthma without complication - stable with mild exacerbation due to allergies, refilled without change - fluticasone (ARNUITY ELLIPTA) 100 MCG/ACT inhaler Dispense: 3 each; Refill: 3 - montelukast (SINGULAIR) 10 MG tablet Dispense: 90 tablet; Refill: 3 - continue albuterol inhaler prn Seasonal allergic rhinitis due to other allergic trigger - recent increase in symptoms due to allergy season - montelukast (SINGULAIR) 10 MG tablet Dispense: 90 tablet; Refill: 3 Gastroesophageal reflux disease with esophagitis without hemorrhage - stable, well-controlled with omeprazole and diet changes. We discussed trying to discontinue omeprazole and just managing with diet to see if she needs pharmacologic treatment anymore. Pt is willing to try this, but refills were s ent in case symptoms recur. - omeprazole (PRILOSEC) [address] capsule Dispense: 90 capsule; Refill: 3 - restart if symptoms recur Bilateral sciatica - intermittent back pain/spasms at night, well-controlled with methocarbamol prn, refilled unchanged - methocarbamol (ROBAXIN) 750 MG tablet Dispense: 90 tablet; Refill: 0 Restless legs syndrome (RLS) - nightly symptoms making it difficult to sleep, well-controlled with gabapentin qhs - gabapentin (NEURONTIN) 300 MG capsule Dispense: 90 capsule; Refill: 3 Follow-up in 6 months OV or sooner if needed. No follow-ups on file. Subjective Renee is a 63 year old, presenting for the following health issues: Recheck Medication HPI Pt presents for BP med check. Is continuing chlorthalidone 25mg and candesartan 16mg daily without issues. Notes previous leg cramping with hydrochlorothiazide ~10 years ago and discontinued it. BP at home has been in 120-140s/70-80s, with an average of ~135/80 over the past month, but is continuing to trend lower towards 120/80. Continuing Crestor 10mg daily without side effects. Notes has a 16 day trip/cruise starting on Tuesday from [place] to [place] and [place]. Has had a couple recent episodes of severe depression and anger outbursts, which she has not had for a while. She tried to up her dose of vilazodone to 40mg but then decreased to 30mg, which she has been doing daily. She has been seeing Ellen Engel for management of her psychiatric medications but has been unable to contact her for the past 2 weeks regarding her vilazodone. She is concerned about side effects and efficacy of this medication and would like to go off of it. She has had looser stools and recently has had increased sweating, heart racing, and dizziness/lightheadedness, which she attributes to vilazodone. She states they previously discussed increasing Wellbutrin dosing as alternative and would like to do that before her trip. She notes she is on the cancellation list, otherwise her nextscheduled follow-up is in 06/2024. Hypertension Follow-up Do you check your blood pressure regularly outside of the clinic? Yes Are you following a low salt diet? Yes Are your blood pressures ever more than 140 on the top number (systolic) OR more than 90 on the bottom number (diastolic), for example 140/90? Yes Gabapentin: uses for RLS. Controls symptoms well-1 tab nightly. GERD: controlled with omeprazole. No concerns. Gets GERD flares with certain foods. Taking nightly. Asthma Follow-Up Was ACT completed today? No Do you have a cough? No Do you have any shortness of breath? No How often are you using a short-acting (rescue) inhaler or nebulizer, such as Albuterol? A few times a month How many days per week do you miss taking your asthma controller medication? 0 Please describe any recent triggers for your asthma: allergies Have you had any Emergency Room Visits, Urgent Care Visits, or Hospital Admissions since your last office visit? No Continuing Arnuity Ellipta inhaler daily and Singulair QPM. Notes with allergy season, she has beencoughing more and has needed to use her albuterol inhaler more. Would like yearly fill of her asthma medications. Back pain: using Robaxin PRN for this with back spasms/tightness. Using 2-3x a month at night with back tightness that impacts her low back. Review of Systems Constitutional, neuro, ENT, endocrine, pulmonary, cardiac, gastrointestinal, genitourinary, musculoskeletal, integument and psychiatric systems are negative, except as otherwise noted. Objective BP 112/72 (BP Location: Right arm, Patient Position: Chair, Cuff Size: Adult Large) Pulse 76 Temp 97.4 ??F (36.3 ??C) (Temporal) Resp 20 Ht 1.676 m (5' 6) Wt 91.6 kg (202 lb) BMI 32.60 kg/m?? Body mass index is 32.6 kg/m??. Physical Exam GENERAL: alert and no distress NECK: no adenopathy, no asymmetry, masses, or [...] normal PSYCH: mentation appears normal, affect normal/bright Results for orders placed or performed in visit on 03/28/24 (from the past 24 hour(s)) Basic Metabolic Panel (BFP) Result Value Ref Range Carbon Dioxide 29.8 20 - 32 mmol/L Creatinine 1.00 0.60 - 1.30 mg/dL Glucose 95 60 - 99 mg/dL Sodium 134.9 (A) 135 - 146 mmol/L Potassium 3.82 3.5 - 5.3 mmol/L Chloride 98.1 98 - 110 mmol/L Urea Nitrogen 17 7 - 25 mg/dL Calcium 10.0 8.6 - 10.3 mg/dL BUN/Creatinine Ratio 17 6 - 32 10/29/2022 10:51 AM 06/30/2023 5:10 PM 03/28/2024 9:30 AM LLUVIA-7 SCORE Total Score 11 10 9 10/29/2022 10:51 AM 06/30/2023 5:10 PM 03/28/2024 9:30 AM PHQ PHQ-9 Total Score 16 12 11 Q9: Thoughts of better off /self-harm past 2 weeks Not at all Not at all Not at all Signed Electronically by: Woo Hicks PA-C documented in this encounter Nursing Notes * Gishwiller, Vicky, HARVEST CONTRACTOR - 03/28/2024 8:00 AM CDT Renee King is here for a blood pressure check and medication refill. Questioned patient about current smoking habits. Pt. has never smoked. Body mass index is 33.67 kg/(m^2). PULSE regular My Chart: active Pre-visit planning Immunizations - up to date Colonoscopy - is up to date Mammogram - is up to date Asthma - PHQ9 - LLUVIA-7 - The patient has verbalized that it is ok to leave a detailed voice message on the patient's cell phone with results/recommendations from this visit. documented in this encounter Plan of Treatment Not on file documented as of this encounter Procedures Procedure Name Priority Date/Time Associated Diagnosis Comments BASIC METABOLIC PANEL (BFP) Routine 03/28/2024 11:30 AM CDT Benign hypertension NM COLLECTION VENOUS BLOOD VENIPUNCTURE Routine 03/28/2024 8:55 AM CDT Benign hypertension documented in this encounter Results * (ABNORMAL) Basic Metabolic Panel (BFP) [...] - NON-BEAKER BLO OD LABS BFP INTERNAL documented in this encounter Visit Diagnoses Diagnosis Recurrent major depressive disorder, in full remission (H) Benign hypertension Essential hypertension, benign Mild intermittent asthma without complication Unspecified asthma Seasonal allergic rhinitis due to other allergic trigger Gastroesophageal reflux disease with esophagitis without hemorrhage Bilateral sciatica Sciatica Restless legs syndrome (RLS) documented in this encounter Additional Health Concerns Assessment Noted Time PHQ-9 Depression Total Score: 11 024 9:30 AM CDT documented as of this encounter Care Teams Category Director Relationship Specialty Start Date End Date Woo Hicks PA-C [address] [address] [place] [address] PCP - General Family Medicine 08/26/22 Melba Calderon MD [address] [place] [address] Referring Physician Family Medicine 08/04/20 Terrance Bass MD [address] [place] [address] Pulmonary Disease 08/04/20 Judson Crowder MD [address], [address] [place] [address] Assigned PCP 07/10/22 Annemarie Moon MD 1600 [facility] 200 [place] [address] Cardiology 03/01/24 Annemarie Moon MD 1600 [facility] 200 [place] [address] Assigned Heart and Vascular Provider 03/09/24 documented as of this encounter
--- OUTSIDE RECORDS SUMMARY | 2024-04-27 08:02 | XMS_ITS | Encounter Summary ---
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 documented as of this encounter Care Teams Wardrobe Specialist Relationship Specialty Start Date End Date Woo Hicks PA-C [address] [place] [address] PCP - General Family Medicine 08/26/22 Melba Calderon MD [address] [place] [address] Referring Physician Family Medicine 08/04/20 Terrance Bass MD [address] [place] [address] Pulmonary Disease 08/04/20 Judson Crowder MD [address], [id number] [place] [address] Assigned PCP 07/10/22 Annemarie Moon MD 1600 [facility] 200 [place] [address] Cardiology 03/01/24 documented as of this encounter
--- OUTSIDE RECORDS SUMMARY | 2024-04-27 08:02 | XMS_ITS | Encounter Summary ---
Author Organization [facility] Address [address] [place] [address] Care Team Providers Care Cafeteria Clerk Name Role Phone Melba Calderon MD Unavailable Terrance Bass MD Unavailable Judson Crowder MD Unavailable Woo Hicks PA-C Primary Care Provider Encounter Details Date Type Department Care Team (Latest Contact Info) Description 02/29/2024 Travel Social History Tobacco Use Types Packs/Day [...] Total Score: 12 06/30/ 023 5:11 PM METAL TANK BUILDER documented as of this encounter Care Teams Cafeteria Clerk Relationship Specialty Start Date End Date Woo Hicks PA-C [address] [place] [address] PCP - General Family Medicine 08/26/22 Melba Calderon MD [address] [place] [address] Referring Physician Family Medicine 08/04/20 Terrance Bass MD [address] [place] [address] Pulmonary Disease 08/04/20 Judson Crowder MD [address], [id number] [place] [address] Assigned PCP 07/10/22 documented as of this encounter
--- OUTSIDE RECORDS SUMMARY | 2024-04-27 08:02 | XMS_ITS | Encounter Summary ---
Author Organization [facility] Address [address] [place] [address] Care Team Providers Care Pediatric Occupational Therapist Name Role Phone Melba Calderon MD Unavailable Terrance Bass MD Unavailable [phone] Judson Crowder MD Unavailable Woo Hicks PA-C Primary Care Provider Annemarie Moon MD Unavailable [phone] Annemarie Moon MD Unavailable [phone] Encounter Details Date Type Department Care Team (Latest Contact Info) Description 03/21/2024 Travel Social History Tobacco Use Types Packs/Day [...] Depression Total Score: 12 023 5:11 PM DIRECTOR INSTRUMENTATION documented as of this encounter Care Teams Pediatric Occupational Therapist Relationship Specialty Start Date End Date Woo Hicks PA-C [address] [address] [place] [address] PCP - General Family Medicine 08/26/22 Melba Calderon MD [address] [place] [address] Referring Physician Family Medicine 08/04/20 Terrance Bass MD [address] [place] [address] Pulmonary Disease 08/04/20 Judson Crowder MD [address], [id number] [place] [address] Assigned PCP 07/10/22 Annemarie Moon MD 1600 [facility] 200 [place] [address] Cardiology 03/01/24 Annemarie Mono MD 1600 [facility] [address] [place] [address] Assigned Heart and Vascular Provider 03/09/24 documented as of this encounter
--- OUTSIDE RECORDS SUMMARY | 2024-04-27 08:02 | XMS_ITS | Encounter Summary ---
Author Organization [facility] Address [address] [place] [address] Care Team Providers Care Small Business Representative Name Role Phone Melba Calderon MD Unavailable Terrance Bass MD Unavailable [phone] Judson Crowder MD Unavailable Woo Hicks PA-C Primary Care Provider Annemarie Moon MD Unavailable [phone] Annemarie Moon MD Unavailable [phone] Encounter Details Date Type Department Care Team (Latest Contact Info) Description 03/28/2024 Travel Social History Tobacco Use Types Packs/Day [...] documented as of this encounter Care Teams Small Business Representative Relationship Specialty Start Date End Date Woo Hicks PA-C [address] [place] [address] PCP - General Family Medicine 08/26/22 Melba Calderon MD [address] [place] [address] Referring Physician Family Medicine 08/04/20 Terrance Bass MD [address] [place] [address] Pulmonary Disease 08/04/20 Judson Crowder MD [address], [id number] [place] [address] Assigned PCP 07/10/22 Annemarie Moon MD 1600 [facility] [address] [place] [address] Cardiology 03/01/24 Annemarie Moon MD 1600 [facility] [address] [place] [address] Assigned Heart and Vascular Provider 03/09/24 documented as of this encounter
--- OUTSIDE RECORDS SUMMARY | 2024-04-27 08:02 | XMS_ITS | Encounter Summary ---
Author Organization [facility] Address [address] [place] [address] Care Team Providers Care Regional Director Of Admissions Name Role Phone Melba Calderon MD Unavailable Terrance Bass MD Unavailable Judson Crowder MD Unavailable Woo Hicks PA-C Primary Care Provider [phone] Encounter Details Date Type Department Care Team (Latest Contact Info) Description 02/27/2024 Travel Social History Tobacco Use Types Packs/Day [...] Total Score: 12 06/30/2 023 5:11 PM ICU SPECIALIST documented as of this encounter Care Teams Regional Director Of Admissions Relationship Specialty Start Date End Date Woo Hicks PA-C [address] [place] [address] PCP - General Family Medicine 08/26/22 Melba Calderon MD [address] [place] [address] Referring Physician Family Medicine 08/04/20 Terrance Bass MD [address] [place] [address] Pulmonary Disease 08/04/20 Judson Crowder MD [address], [id number] [place] [address] Assigned PCP 07/10/22 documented as of this encounter
--- OUTSIDE RECORDS SUMMARY | 2024-04-27 08:03 | XMS_ITS | Encounter Summary ---
Author Organization [facility] Address [address] [place] [address] Care Team Providers Care Desilverizer Name Role Phone Melba Calderon MD Unavailable Terrance Bass MD Unavailable [phone] Judson Crowder MD Unavailable [phone] Woo Hicks PA-C Primary Care Provider [phone] Annemarie Moon MD Unavailable Annemarie Moon MD Unavailable [phone] Encounter Details Date Type Department Care Team (Late st Contact Info) Description 10/11/2022 MyC Medical Advice [facility] [address] [place] [address] [address] [place] [address] Dianna Blood CMA Social History Tobacco Use Types Packs/Day Years Used Date Smoking Tobacco: Never Smokeless Tobacco: Never Alcohol Use Standard Drinks/Week Comments Yes 1.7 (1 standard drink = 0.6 oz p ure alcohol) rare PHQ-2 Answer Date Recorded PHQ-2 Score 5 09/02/2022 Sex and Gender Information Value Date Recorded Sex Assigned at Not on file Gender Identity Not on file Sexual Orientation Not on file documented as of this encounter Plan of Treatment Not on file documented as of this encounter Visit Diagnoses Not on filedocumented in this encounter Additional Health Concerns Assessment Noted Time PHQ-9 Depression Total Score: 15 023 1:14 PM CENTERLESS GRINDER documented as of this encounter Care Teams Desilverizer Relationship Specialty Start Date End Date Woo Hicks PA-C [address] [place] [address] PCP - General Family Medicine 08/26/22 Melba Calderon MD [address] [place] [address] Referring Physician Family Medicine 08/04/20 Terrance Bass MD [address] [place] [address] Pulmonary Disease 08/04/20 Judson Crowder MD [address], [id number] [place] [address] Assigned PCP 07/10/22 Annemarie Moon MD 1600 [facility] [address] [place] [address] Cardiology 03/01/24 Annemarie Moon MD 1600 [facility] [address] [place] [address] Assigned Heart and Vascular Provider 03/09/24 documented as of this encounter
--- OUTSIDE RECORDS SUMMARY | 2024-04-27 08:03 | XMS_ITS | Encounter Summary ---
Author Organization [facility] Address [address] [place] [address] Care Team Providers Care Center Consultant Name Role Phone Chacho Dean MD Primary Care Provider Carli Ramires MD Primary Care Provider [phone] Melba Calderon MD Primary Care Provider [phone] Melba Calderon MD Primary Care Provider [phone] Melba Calderon MD Unavailable [phone] Terrance Bass MD Unavailable [phone] Terrance Bass MD Unavailable [phone] Sveta Noguera PA-C Primary Care Pro vider Sveta Noguera PA-C Unavailable Judson Crowder MD Unavailable [phone] Woo Hicks PA-C Primary Care Provider [phone] Annemarie Moon MD Unavailable [phone] Annemarie Moon MD Unavailable [phone] Encounter Details Date Type Department Care Team (Late st Contact Info) Description 11/11/2005 [facility] [address] [place] [phone] Chacho Dean [place] [phone] MEDINA NW DISCHARGE SUMMARY (Primary Dx) Social History Tobacco Use Types Packs/Day Years Used Date Smoking Tobacco: Never Passive Smoke Exposure: Past Smokeless Tobacco: Never Alcohol Use Standard Drinks/Week Comments Yes 1.7 (1 standard drink = 0.6 oz p ure alcohol) rare Sex and Gender Information Value Date Recorded Sex Assigned at Not on file Gender Identity Not on file Sexual Orientation Not on file documented as of this encounter Plan of Treatment Not on file documented as of this encounter Visit Diagnoses Diagnosis MEDINA NW DISCHARGE SUMMARY- Primary documented in this encounter Care Teams Center Consultant Relationship Specialty Start Date End Date Chacho Dean [place] [phone] PCP - General 01/06/04 10/23/14 Carli Ramires [place] [phone] PCP - General Internal Medicine 10/24/14 06/01/16 Melba Calderon MD [address] [place] [address] PCP - General Family Practice 06/02/16 11/14/17 Melba Calderon MD [address] [place] [address] PCP - General Family Medicine 06/16/20 04/27/22 Sveta Noguera PA-C [address] [address] PCP - General Family Medicine 04/28/22 08/25/22 Woo Hicks PA-C [address] [place] [address] [address] [place] [address] PCP - General Family Medicine 08/26/22 Melba Calderon MD [address] [place] [address] Referring Physician Family Medicine 08/04/20 Terrance Bass MD [address] [place] [address] Pulmonary Disease 08/04/20 Terrance Bass MD [address] [address] Assigned Pulmonology Provider 08/31/20 02/26/22 Sveta Noguera PA-C [facility] [address] [address] Assigned PCP 05/22/22 07/09/22 Judson Crowder MD [id number] [place] [address] Assigned PCP 07/10/22 Annemarie Moon MD 1600 [facility] 200 [place] [address] Cardiology 03/01/24 Annemarie Moon MD 1600 [facility] [address] [place] [address] Assigned Heart and Vascular Provider 03/09/24 documented as of this encounter
--- OUTSIDE RECORDS SUMMARY | 2024-04-27 08:03 | XMS_ITS | Encounter Summary ---
Author Organization [facility] Address [address] [place] [address] Care Team Providers Care Mine Inspector Name Role Phone Melba Calderon MD Unavailable [phone] Terrance Bass MD Unavailable Judson Crowder MD Unavailable Woo Hicks PA-C Primary Care Provider [phone] Annemarie Moon MD Unavailable Annemarie Moon MD Unavailable [phone] Encounter Details Date Type Department Care Team (Late st Contact Info) Description 12/29/2023 MyC Medical Advice [facility] [address] [facility] [address] [place] [address] Hemalatha Griffith CMA Social History Tobacco Use Types Packs/Day [...] Depression Total Score: 12 023 5:11 PM 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 documented as of this encounter Care Teams Mine Inspector Relationship Specialty Start Date End Date Woo Hicks PA-C [address] [place] [address] PCP - General Family Medicine 08/26/22 Melba Calderon MD [address] [place] [address] Referring Physician Family Medicine 08/04/20 Terrance Bass MD [address] [place] [address] Pulmonary Disease 08/04/20 Judson Crowder MD [address], [id number] [place] [address] Assigned PCP 07/10/22 Annemarie Moon MD 1600 [facility] 200 [place] [address] Cardiology 03/01/24 Annemarie Moon MD 1600 [facility] 200 [place] [address] Assigned Heart and Vascular Provider 03/09/24 documented as of this encounter
--- OUTSIDE RECORDS SUMMARY | 2024-04-27 08:03 | XMS_ITS | Encounter Summary ---
Author Organization [place] Address [address] [place] [address] Care Team Providers Care Road Gang Supervisor Name Role Phone Melba Calderon MD Unavailable Terrance Bass MD Unavailable [phone] Judson Crowder MD Unavailable [phone] Woo Hicks PA-C Primary Care Provider [phone] Annemarie Moon MD Unavailable Annemarie Moon MD Unavailable [phone] Encounter Details Date Type Department Care Team (Late st Contact Info) Description 03/09/2023 MyC Medical Advice [facility] [address] [place] [address] [address] [place] [address] Vicky España CMA Social History Tobacco Use Types Packs/Day Years Used Date Smoking Tobacco: Never Passive Smoke Exposure: Past Smokeless Tobacco: Never Alcohol Use Standard Drinks/Week Comments Yes 1.7 (1 standard drink = 0.6 oz p ure alcohol) rare PHQ-2 Answer Date Recorded PHQ-2 Score 4 10/29/2022 Sex and Gender Information Value Date Recorded Sex Assigned at Not on file Gender Identity Not on file Sexual Orientation Not on file documented as of this encounter Plan of Treatment Not on file documented as of this encounter Visit Diagnoses Not on filedocumented in this encounter Additional Health Concerns Assessment Noted Time PHQ-9 Depression Total Score: 16 023 10:52 AM CDT documented as of this encounter Care Teams Road Gang Supervisor Relationship Specialty Start Date End Date Woo Hicks PA-C [address] [place] [address] PCP - General Family Medicine 08/26/22 Melba Calderon MD [address] [place] [address] Referring Physician Family Medicine 08/04/20 Terrance Bass MD [address] [place] [address] Pulmonary Disease 08/04/20 Judson Crowder MD [address], [id number] [place] [address] Assigned PCP 07/10/22 Annemarie Moon MD [address] [facility] [address] [place] [address] Cardiology 03/01/24 Annemarie Moon MD [address] [facility] [address] [place] [address] Assigned Heart and Vascular Provider 03/09/24 documented as of this encounter
--- OUTSIDE RECORDS SUMMARY | 2024-04-27 08:03 | XMS_ITS | Encounter Summary ---
Author Organization [facility] Address [address] [place] [address] Care Team Providers Care Prism Inspector Name Role Phone Melba Calderon MD Unavailable Terrance Bass MD Unavailable [phone] Judson Crowder MD Unavailable Woo Hicks PA-C Primary Care Provider [phone] Annemarie Moon MD Unavailable [phone] Annemarie Moon MD Unavailable Encounter Details Date Type Department Care Team (Late st Contact Info) Description 06/30/2023 MyC Medical Advice [facility] [address] [address] Woo Hicks PA-C [address] [address] Social History Tobacco Use Types Packs/Day Years [...] Depression Total Score: 12 023 5:11 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 documented as of this encounter Care Teams Prism Inspector Relationship Specialty Start Date End Date Woo Hicks PA-C [address] [place] [address] PCP - General Family Medicine 08/26/22 Melba Calderon MD [address] [place] [address] Referring Physician Family Medicine 08/04/20 Terrance Bass MD [address] [place] [address] Pulmonary Disease 08/04/20 Judson Crowder MD [address], [id number] [place] [address] Assigned PCP 07/10/22 Annemarie Moon MD [address] [facility] [address] [place] [address] Cardiology 03/01/24 Annemarie Moon MD [address] [facility] [address] [place] [address] Assigned Heart and Vascular Provider 03/09/24 documented as of this encounter
--- OUTSIDE RECORDS SUMMARY | 2024-04-27 08:03 | XMS_ITS | Encounter Summary ---
Author Organization [facility] Address [address] [place] [address] Care Team Providers Care Stallion Keeper Name Role Phone Melba Calderon MD Unavailable [phone] Terrance Bass MD Unavailable Judson Crowder MD Unavailable [phone] Woo Hicks PA-C Primary Care Provider [phone] Reason for Visit * Reason Onset Date Comments Chest Pain 02/27/2024 Encounter Details Date Type Department Care Team (Late st Contact Info) Description 02/27/2024 Telephone [facility] [address] [place] [address] None Chest Pain Social History Tobacco Use Types Packs/Day Years [...] encounter Miscellaneous Notes * Telephone Encounter - Andree Recinos RN - 02/27/2024 12:16 PM CDT Pt walks in the clinic - 12:14. She came from having her nails done. ALICE Jameson assisted her back to the nurse only room. 12:15 - Rapid response was called. Pt having chest pain 7/10, radiating to her shoulder and jaw. She says she is having some SOB. 12:16 - bp 204/114, 77, 97 percent room air, 16. 12:17 - 911 called 12:18 - 3 (81 mg ASA) given. Pt states she had taken an ASA before she came here. She reports she told her that she was coming here. She said she normally is seen at [facility]. VS 194/109, 75, 96 percent room air. 12:23 - EKG done. 12:25 chest pain 4/10. No nausea, no SOB, no sweating. Still has some chest pain and right shoulderand jaw pain. 12:26 second EKG done, 193/111, 74, 95 percent room air. 12:30 - chest pain better, still back and jaw pain. 12:31 - 198/101, 73, 97 percent on room air. 12:35 pt notified her that she was going to the hospital 12:35 EMS here. 12:37 - Pt going via EMS transport to [facility]. MAIKEL Lassiter advised pt going to [facility]. Will forward to Shayla Dumont, POD. * Addendum Note - Afshan Narayanan RN - 02/27/2024 12:16 PM CDTAddended by: AFSHAN NARAYANAN on: 02/27/2024 01:20 PM Modules accepted: Orders documented in this encounter Plan of Treatment Not on file documented as of this encounter Procedures Procedure Name Priority Date/Time Associated Diagnosis Comments EKG 12-LEAD COMPLETE W/READ - CLINICS Routine 02/27/2024 12:27 PM CDT Chest pain documented in this encounter Results * EKG 12-lead complete w/read - Clinics (02/27/2024 12:27 PM CDT) Shayla Dumont ENGLISH LANGUAGE [employer] [facility] ECG ORDERABL ES documented in this encounter Visit Diagnoses Diagnosis Chest pain- Primary Chest pain, unspecified documented in this encounter Administered Medications Inactive Administered Medications - up to 3 most recent administrations Medication Order MAR Action Action Date Dose Rate Site aspirin (ASA) chewable tablet 243 mg 243 mg, Oral, ONCE, On 02/27/24 at 1330, For 1 dose $Given 02/27/2024 12:18 PM CDT 243 mg documented in this encounter Additional Health Concerns Assessment Noted Time PHQ-9 Depression Total Score: 12 023 5:11 PM VISION REHABILITATION THERAPIST documented as of this encounter Care Teams Stallion Keeper Relationship Specialty Start Date End Date Woo Hicks PA-C [address] [address] [place] [address] PCP - General Family Medicine 08/26/22 Melba Calderon MD [address] [place] [address] Referring Physician Family Medicine 08/04/20 Terrance Bass MD [address] [place] [address] Pulmonary Disease 08/04/20 Judson Crowder MD [address], [id number] [place] [address] Assigned PCP 07/10/22 documented as of this encounter
--- OUTSIDE RECORDS SUMMARY | 2024-04-27 08:03 | XMS_ITS | Encounter Summary ---
Author Organization [facility] Address [address] [place] [address] Care Team Providers Care Territory Sales Manager Medical Name Role Phone Chacho Dean MD Primary Care Provider Carli Ramires MD Primary Care Provider [phone] Melba Calderon MD Primary Care Provider [phone] Melba Calderon MD Primary Care Provider [phone] Melba Calderon MD Unavailable [phone] Terrance Bass MD Unavailable [phone] Terrance Bass MD Unavailable [phone] Sveta Noguera PA-C Primary Care Pro vider Sveta Noguera PA-C Unavailable Judson Crowder MD Unavailable [phone] Woo Hicks PA-C Primary Care Provider [phone] Annemarie Moon MD Unavailable [phone] Annemarie Moon MD Unavailable [phone] Encounter Details Date Type Department Care Team (Late st Contact Info) Description 10/28/2010 [facility] [address] [place] [id number] Chacho [place] [id number] W Hospital Report Social History Tobacco Use Types Packs/Day Years [...] as of this encounter Visit Diagnoses Diagnosis [facility] Hospital Report- Primary documented in this encounter Care Teams Territory Sales Manager Medical Relationship Specialty Start Date End Date Chacho [place] [id number] PCP - General 01/06/04 10/23/14 Carli [place] [id number] PCP - General Internal Medicine 10/24/14 06/01/16 Melba Calderon MD [address] [place] [id number] PCP - General Family Practice 06/02/16 11/14/17 Melba Calderon MD [address] [place] [address] [address] PCP - General Family Medicine 06/16/20 04/27/22 Sveta Noguera PA-C [address] [place] [address] PCP - General Family Medicine 04/28/22 08/25/22 Woo Hicks PA-C [address] [place] [address] PCP - General Family Medicine 08/26/22 Melba Calderon MD [address] [place] [id number] Referring Physician Family Medicine 08/04/20 Terrance Bass MD [address] [place] [id number] MD Pulmonary Disease 08/04/20 Terrance Bass MD [address] [address] Assigned Pulmonology Provider 08/31/20 02/26/22 Sveta Noguera PA-C [facility] [address] [facility] [address] [place] [address] Assigned PCP 05/22/22 07/09/22 Judson Crowder MD [address], [id number] [place] [address] Assigned PCP 07/10/22 Annemarie Moon MD 1600 [facility] [address] [place] [address] Cardiology 03/01/24 Annemarie Moon MD 1600 [facility] [address] [place] [address] Assigned Heart and Vascular Provider 03/09/24 documented as of this encounter
--- OUTSIDE RECORDS SUMMARY | 2024-04-27 08:03 | XMS_ITS | Encounter Summary ---
Author Organization [facility] Address [address] [place] [address] Care Team Providers Care Source Water Protection Specialist Name Role Phone Melba Calderon MD Unavailable Terrance Bass MD Unavailable [phone] Judson Crowder MD Unavailable [phone] Woo Hicks PA-C Primary Care Provider [phone] Annemarie Moon MD Unavailable Annemarie Moon MD Unavailable [phone] Encounter Details Date Type Department Care Team (Late st Contact Info) Description 08/26/2022 MyC Medical Advice [facility] [address] [address] Woo Hicks PA-C [address] [address] Social History Tobacco Use Types Packs/Day Years Used Date Smoking Tobacco: Never Smokeless Tobacco: Never Alcohol Use Standard Drinks/Week Comments Yes 1.7 (1 standard drink = 0.6 oz p ure alcohol) rare PHQ-2 Answer Date Recorded PHQ-2 Score 2 06/25/2022 Sex and Gender Information Value Date Recorded Sex Assigned at Not on file Gender Identity Not on file Sexual Orientation Not on file documented as of this encounter Plan of Treatment Not on file documented as of this encounter Visit Diagnoses Not on filedocumented in this encounter Additional Health Concerns Assessment Noted Time PHQ-9 Depression Total Score: 4 06/25/20 22 10:16 AM FISHING GAME WARDEN documented as of this encounter Care Teams Source Water Protection Specialist Relationship Specialty Start Date End Date Woo Hicks PA-C [address] [place] [address] PCP - General Family Medicine 08/26/22 Melba Calderon MD [address] [place] [address] Referring Physician Family Medicine 08/04/20 Terrance Bass MD [address] [place] [address] Pulmonary Disease 08/04/20 Judson Crowder MD [id number] [place] [address] Assigned PCP 07/10/22 Annemarie Moon MD 1600 [facility] 200 [place] [address] Cardiology 03/01/24 Annemarie Moon MD 1600 [facility] 200 [place] [address] Assigned Heart and Vascular Provider 03/09/24 documented as of this encounter
--- OUTSIDE RECORDS SUMMARY | 2024-04-27 08:03 | XMS_ITS | Encounter Summary ---
Author Organization [facility] Address [address] [place] [address] Care Team Providers Care Gold Layer Name Role Phone Melba Calderon MD Unavailable Terrance Bass MD Unavailable [phone] Judson Crowedr MD Unavailable Woo Hicks PA-C Primary Care Provider Reason for Visit * Reason Comments Medication Refill Encounter Details Date Type Department Care Team (Late st Contact Info) Description 02/18/2024 Refill [facility] [address] [address] Woo Hicks PA-C [address] [id number] Medication Refill Social History Tobacco Use Types [...] Telephone Encounter - Manoj Griffith CMA - 02/20/2024 11:49 AM CDT Renee King is requesting a refill of: Refused Prescriptions: Disp Refills methocarbamol (ROBAXIN) 750 MG tablet [Pha* Sig: TAKE 1 TABLET (750 MG) BY MOUTH NIGHTLY NEEDED FOR MUSCLE SPASMS Refused By: MANOJ GRIFFITH Reason for Refusal: Patient needs appointment Pt due for OV documented in this encounter Plan of Treatment Not on file documented as of this encounter Visit Diagnoses Diagnosis Bilateral sciatica Sciatica documented in this encounter Additional Health Concerns Assessment Noted Time PHQ-9 Depression Total Score: 12 023 5:11 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
--- OUTSIDE RECORDS SUMMARY | 2024-04-27 08:03 | XMS_ITS | Encounter Summary ---
Author Organization [place] Address [address] [place] [address] Care Team Providers Care Title Agent Name Role Phone Melba Calderon MD Primary Care Provider [phone] Melba Calderon MD Unavailable [phone] Terrance Bass MD Unavailable [phone] Terrance Bass MD Unavailable [phone] Sveta Noguera PA-C Primary Care Pro vider Sveta Noguera PA-C Unavailable Judson Crowder MD Unavailable [phone] Woo Hicks PA-C Primary Care Provider [phone] Annemarie Moon MD Unavailable [phone] Annemarie Moon MD Unavailable [phone] Encounter Details Date Type Department Care Team (Late st Contact Info) Description 08/07/2021 Documentation Only INTERFACED REPORT Unknown, Provider Social History Tobacco Use Types Packs/Day Years Used Date Smoking Tobacco: Never Smokeless Tobacco: Never Alcohol Use Standard Drinks/Week Comments Yes 1.7 (1 standard drink = 0.6 oz p ure alcohol) rare Sex and Gender Information Value Date Recorded Sex Assigned at Not on file Gender Identity Not on file Sexual Orientation Not on file COVID-19 Exposure Response Date Recorded In the last month, have you been in contact with someone who was confirmed or suspected to have Coronavirus / COVID-19? No / Unsure 08/07/2021 5:22 AM PRINT SUPPORT SPECIALIST documented as of this encounter Plan of Treatment Not on file documented as of this encounter Visit Diagnoses Not on filedocumented in this encounter Care Teams Title Agent Relationship Specialty Start Date End Date Melba Calderon MD [address] [place] [address] PCP - General Family Medicine 06/16/20 04/27/22 Sveta Noguera PA-C [address] [address] PCP - General Family Medicine 04/28/22 08/25/22 Woo Hicks PA-C [address] [place] [address] PCP - General Family Medicine 08/26/22 Melba Calderon MD [address] [place] [address] Referring Physician Family Medicine 08/04/20 Terrance Bass MD [address] [place] [address] Pulmonary Disease 08/04/20 Terrance Bass MD [address] [address] Assigned Pulmonology Provider 08/31/20 02/26/22 Sveta Noguera PA-C [facility] [address] [place] [address] Assigned PCP 05/22/22 07/09/22 Judson Crowder MD [address] , [id number] [place] [address] Assigned PCP 07/10/22 Annemarie Moon MD 1600 [facility] [address] [place] [address] Cardiology 03/01/24 Annemarie Moon MD [address] [facility] [address] [place] [address] Assigned Heart and Vascular Provider 03/09/24 documented as of this encounter
--- OUTSIDE RECORDS SUMMARY | 2024-04-27 08:03 | XMS_ITS | Encounter Summary ---
Author Organization [facility] Address [address] [place] [id number] Care Team Providers Care Body Art Technician Name Role Phone Melba Caldreon MD Unavailable Terrance Bass MD Unavailable [phone] Judson Crowder MD Unavailable [phone] Woo HicksC Primary Care Provider [phone] Reason for Referral * Consultation (Routine: Next available opening) - Pending Review Specialty Diagnoses / Procedures Referred By Corey t Referred To Contact Cardiovascular Disease Diagnoses Chest pain, unspecified type Elevated blood pressure reading with diagnosis of hypertension Sobia Guzman MD [facility] [address] [place] [address] Referral ID Status Reason Start Date Expiration Date V isits Requested Visits Authorized [id number] Pending Review 02/27/2024 02/26/2025 1 1 Question Answer Follow-up with: Self Scheduling Instructions: [facility] will call you to coordinate your care as prescribed by your provider. If you have concerns about scheduling, please call [phone]. Comments [facility] will call you to coordinate your care as prescribed by your provider. If you have concerns about scheduling, please call [phone]. Reason for Visit * Reason Comments Chest Pain Encounter Details Date Type Department Care Team (Late st Contact Info) Description 02/27/2024 1:21 PM CDT - 02/27/2024 5:[address] [facility] Emergency Dept [address] [place] [address] Sobia Guzman MD [facility] [address] [place] [address] Chest pain, unspecified type; Hepatic steatosis; Elevated [...] Sign Reading Time Taken Comments Blood Pressure 182/102 02/27/2024 4:00 PM CDT Pulse 67 02/27/2024 4:00 PM CDT Temperature 36.6 ??C (97.9 ??F) 02/27/2024 1:30 PM CD T Respiratory Rate 24 02/27/2024 3:30 PM CDT Oxygen Saturation 96% 02/27/2024 4:00 PM CDT Inhaled Oxygen Concentration - - Weight - - Height - - Body Mass Index - - documented in this encounter Discharge Instructions * Discharge Instructions* Sobia Guzman MD - 02/27/2024 4:52 PM CDT You tests look really good today but the cause of your pain is unclear. I would like you to performan outpatient stress test in the next week. You will be called to arrange this. I have also placed a referral for cardiology follow-up. Your blood pressure is too high today. Check it 1-2 times a day at home keep a log of this to discuss upon follow-up with your primary care provider to determine if you need adjustments to your medications. If you have recurrent pain or any other concerns you need to return immediately to the nearest emergency department. * Attachments The following attachments cannot be sent through Care Everywhere. * Hypertension: General Info (Uzbek) * Chest Pain (Uzbek) documented in this encounter Medications at Time of Discharge Medication Sig Dispensed Refills Start Date End Date albuterol (ALBUTEROL) 108 (90 BASE) MCG/ACT inhalerIndications:Inte rmittent asthma,Major depression in complete remission (H),Headache(784.0),All ergic rhinitis, cause unspecified,Hypercholes terolemia,Esophageal reflux,Symptomatic menopausal or female climacteric states,Sciatica,Routine general medical examination at a health care facility,Hyperlipidemia LDL goal <130,Benign hypertension,Need for nxjgsqrdyv-rbezuqz-ezoy ussis (Tdap) vaccine, adult/adolescent,Unspec ified episodic mood [...] Respiratory Therapy Supplies (CARETOUCH 2 CPAP 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 Pt reports sudden chest pain 7/10 in R arm and R jaw. 324mg ASA PO and 15mg toradol given IV. 2 sublingual nitroglycerin given and pain improved to 2/10. 200SBP. BS 110. * Cornelius Farooq RN - 02/27/2024 1:22 PM CDT Bed: ED27 Expected date: Expected time: Means of arrival: Comments: MH 63 F cp r jaw pain 210/115 asa 12 lead neg 2 nitroglycerin * Sobia Guzman MD - 02/27/2024 1:21 PM CDT Emergency Department Note History of Present Illness Chief Complaint Chest Pain HPI Renee King is a 63 year old female nonsmoker with hypertension who presents for evaluation of chest pain alone via EMS. She was in her baseline state of health when she got her nails done at a salon. When she walked to her car afterwards she developed sharp pain in her central chest that she also felt in her right scapula and radiating to her bilateral jaw. She walked into clinic who gave aspirin and called paramedics. Paramedics gave her nitroglycerin with resolution of 7 out of 10 chest pain. She has had similar pain that did not last as long in the past. She mentioned it to her distribution collection operator who was not concerned. She last had a stress test in 2021. She denies associated dyspnea, diaphoresis, nausea, or vomiting. She denies recent illness but has been struggling with allergies. Independent Historian As above. Review of External Notes I reviewed the primary care visit from October for an unrelated issue. Patient walked into a clinic today for chest pain and shortness of breath. Multiple EKG's performedand gave aspirin. I reviewed the cardiology visit from May of 2023. Past Medical History Medical History and Problem List Mastodynia Hypercholesterolemia Hyperlipidemia Asthma Malignant neoplasm of skin Menopausal state Shoulder impingement syndrome Plantar fasciitis LLUVIA Allergic rhinitis Major depressive disorder Esophageal reflux Mumps Hypertension Sinusitis Sleep apnea Varicella Anxiety Dysthymic disorder Medications Albuterol Proair Wellbutrin Esgic [place] Estrace Arnuity ellipta Neurontin Atarax Singulair Prilosec Crestor Viibryd Surgical History Arthroplasty shoulder Biopsy breast Discectomy Eye surgery Hysterectomy Cholecystectomy Mohs micrographic procedure Nasal antral windows Tonsillectomy Adenoidectomy Appendectomy Vitrectomy Cataract removal Repair rectocele Physical Exam Patient Vitals for the past 24 hrs: BP Temp Temp src Pulse Resp SpO2 02/27/24 1600 (!) 182/102 -- -- 67 -- 96 % 02/27/24 1530 (!) 167/92 -- -- 65 24 95 % 02/27/24 1500 (!) 159/106 -- -- 64 13 94 % 02/27/24 1430 (!) 177/112 -- -- 73 16 96 % 02/27/24 1415 -- -- -- 66 12 95 % 02/27/24 1402 (!) 160/93 -- -- 67 12 96 % 02/27/24 1400 -- -- -- 65 20 94 % 02/27/24 1335 -- -- -- 68 25 96 % 02/27/24 1330 (!) 176/106 97.9 ??F (36.6 ??C) Oral 74 18 94 % Physical Exam General: Well-developed and well-nourished. Well appearing middle aged woman. Cooperative. Head: Atraumatic. Eyes: Conjunctivae, lids, and sclerae are normal. ENT: Normal nose. Moist mucous membranes. Neck: Supple. Normal range of motion. CV: Regular rate and rhythm. Normal heart sounds with no murmurs, rubs, or gallops detected. Resp: No respiratory distress. Clear to auscultation bilaterally without decreased breath sounds, wheezing, rales, or rhonchi. GI: Soft. Non-distended. Non-tender. MS: Normal ROM. No bilateral lower extremity edema. Skin: Warm. Non-diaphoretic. No pallor. Neuro: Awake. A&Ox3. Normal strength. Psych: Normal mood and affect. Normal speech. Vitals reviewed. Diagnostics Lab Results Labs Ordered and Resulted from Time of ED Arrival to Time of ED Departure BASIC METABOLIC PANEL - Normal Result Value Sodium 141 Potassium 3.8 Chloride 105 Carbon Dioxide (CO2) 27 Anion Gap 9 Urea Nitrogen 11.9 Creatinine 0.83 GFR Estimate 79 Calcium 10.0 Glucose 96 TROPONIN T, HIGH SENSITIVITY - Normal Troponin T, High Sensitivity 7 TROPONIN T, HIGH SENSITIVITY - Normal Troponin T, High Sensitivity <6 CBC WITH PLATELETS AND DIFFERENTIAL WBC Count 6.6 RBC Count 3.84 Hemoglobin 12.2 Hematocrit 35.9 MCV 94 MCH 31.8 MCHC 34.0 RDW 12.9 Platelet Count 260 % Neutrophils 53 % Lymphocytes 36 % Monocytes 8 % Eosinophils 2 % Basophils 1 % Immature Granulocytes 0 NRBCs per 100 WBC 0 Absolute Neutrophils 3.5 Absolute Lymphocytes 2.4 Absolute Monocytes 0.5 Absolute Eosinophils 0.1 Absolute Basophils 0.0 Absolute Immature Granulocytes 0.0 Absolute NRBCs 0.[address] Aortic Survey w Contrast Final Result IMPRESSION: 1. No evidence for aortic aneurysm or dissection. 2. Diffuse hepatic steatosis. JOSE MATIAS MD SYSTEM ID: [id number] Exercise Stress Echocardiogram (Results Pending) Report per radiology. EKG Indication: Chest pain Time: 1346 Rate 65 bpm. NM interval 172. QRS duration 90. QT/QTc 412/428. Normal sinus rhythm Possible left atrial enlargement Rightward axis Septal infarct, age undetermined No acute ST changes. T-wave inversions V1, V2 resolved as compared to prior, dated 11/10/23. Independent Interpretation I independently interpreted the CT and do not see aortic dissection. ED Course ED Course ED Course as of 02/27/24 1806 TueFeb 27, [id number] I obtained history and examined the patient as noted above. 1647 I updated the patient on findings and plan. She is comfortable with discharge for outpatient stress and cardiology referral. 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 She walked into a clinic who gave her aspirin and called paramedics. She got nitroglycerin and had resolution of her pain. She does mention she has had similar pain in the past and told her distribution collection operator who was not concerned. Upon arrival she is well- appearing, though hypertensive up to182/112. Fortunately, EKG is quite reassuring. Initial troponin is normal at 6 with repeat being 4 hours after onset of pain being undetectable. Historical features of her pain are not consistent with pulmonary embolism. I was worried about her aorta and sent her for aortic survey which, fortunately, is also reassuring (incidental hepatic steatosis noted and patient made aware) as are the remainder of herlaboratory studies. At this point she is appropriate for discharge but does warrant outpatient stress testing which sheis comfortable with. I have also recommended she start checking her blood pressure and keeping a log of this so she can follow-up with her primary care provider as she may need antihypertensive dose adjustments. She was unhappy with her previous distribution collection operator and agrees to a cardiology referral here. While she is awaiting her outpatient testing and follow-up she agrees to return if she has recurrent symptoms or new concerns. All questions answered. Amenable to discharge. Disposition The patient was discharged. Diagnosis ICD-10-CM 1. Chest pain, unspecified type R07.9 Follow-Up with Cardiology Exercise Stress Echocardiogram 2. Hepatic steatosis K76.0 3. Elevated blood pressure reading with diagnosis of hypertension I10 Follow-Up with Cardiology Exercise Stress Echocardiogram Discharge Medications Discharge Medication List as of 02/27/2024 5:00 PM Scribe Disclosure: IMichelle, am serving as a scribe at 1:36 PM on 02/27/2024 to document services personally performed by Sobia Guzman MD based on my observations and the provider's statements to me. Sobia Guzman MD 03/03/24 1059 documented in this encounter Plan of Treatment Scheduled Referrals Name Type Priority Associated Diagnoses Orde r Schedule Follow-Up with Cardiology Referral Routine: Next available opening Chest pain, unspecified type Elevated blood pressure reading with diagnosis of hypertension Expected: 02/27/2024 (Approximate), Expires: 02/26/2025 documented as of this encounter Procedures Procedure Name Priority Date/Time Associated Diagnosis Comments TROPONIN T, HIGH SENSITIVITY STAT 02/27/2024 3:[address] AORTIC SURVEY W CONTRAST STAT 02/27/2024 3:33 PM CDT EKG 12-LEAD, TRACING ONLY STAT 02/27/2024 1:46 PM CDT EXTRA TUBE STAT 02/27/2024 1:30 PM CDT EXTRA PURPLE TOP TUBE STAT 02/27/2024 1:30 PM CDT EXTRA GREEN TOP (LITHIUM HEPARIN) TUBE STAT 02/27/2024 1:30 PM CDT EXTRA RED TOP TUBE STAT 02/27/2024 1: 30 PM CDT EXTRA BLUE TOP TUBE STAT 02/27/2024 1 :30 PM CDT CBC WITH PLATELETS AND DIFFERENTIAL STAT 02/27/2024 1:30 PM CDT TROPONIN T, HIGH SENSITIVITY STAT 02/27/2024 1:30 PM CDT CBC WITH PLATELETS & DIFFERENTIAL STAT 02/27/2024 1:30 PM CDT BASIC METABOLIC PANEL STAT 02/27/2024 1:30 PM CDT documented in this encounter Results * Troponin T, High Sensitivity (02/27/2024 3:56 PM CDT) Troponin T, High Sensitivity <6 <=14 ng/L [...] MD LAB - BLOOD ORDERABL ES LABORATORY [facility] [address] floor, [address] [place] [address], [facility] [phone] * CT Aortic Survey w Contrast (02/27/2024 3:33 PM CDT) Anatomical Region Laterality Modality Abdomen/Pelvis, Chest, SUBRA D CT BODY, UMP CT CHEST, UMP CT ABDOMEN PELVIS, RAD CT Computed Tomography Impressions 02/27/2024 3:49 PM CDT IMPRESSION: 1. ??No evidence for aortic aneurysm or dissection. 2. ??Diffuse hepatic steatosis. JOSE MATIAS MD SYSTEM ID: ??[id number] Narrative 02/27/2024 3:[address] AORTIC [...] hepatic steatosis. JOSE MATIAS MD SYSTEM ID: [id number] Sobia Guzman MD IMG CT ORDERABLES * EKG 12 lead (02/27/2024 1:46 PM CDT) Systolic Blood Pressure mmHg RADIOLOGY RESULTS Diastolic Blood Pressure mmHg RADIOLOGY RESULTS Ventricular Rate 65 BPM RAD IOLOGY RESULTS Atrial Rate 65 BPM RADIOLOG Y RESULTS NM Interval 172 ms RADIOLOG Y RESULTS QRS Duration 90 ms RADIOLO GY RESULTS QT 412 ms RADIOLOGY RESULTS QTc 428 ms RADIOLOGY RESULTS P Conception Junction 52 degrees RADIOLOGY RESULTS R AXIS 102 degrees RADIOLOGY RESULTS T Conception Junction 42 degrees RADIOLOGY RESULTS Interpretation ECG Sinus rhythm Possible Left atrial enlargement Rightward axis Septal infarct , age undetermined Abnormal ECG When compared with ECG of 07-Aug-2021 05:34, Septal infarct is now Present Confirmed by GENERATED REPORT, COMPUTER ([id number]), tape editor JOS GRIMES ([id number]) on 02/28/2024 11:28:34 AM RADIOLOGY RESULTS 02/27/2024 1:46 PM CDT 02/28/2024 11:28 AM CDT Sobia Guzman MD ECG ORDERABLES RADIOLOGY RESULTS * CBC with platelets and differential (02/27/2024 1:30 PM CDT) [facility] WBC Count 6.6 4.0 - 11.0 10e3/uL [...] MD LAB - BLOOD ORDERABL ES LABORATORY [facility] [address], [address] [place] [address], [facility] [phone] * Troponin T, High Sensitivity (02/27/2024 1:30 PM CDT) Troponin T, High Sensitivity 7 <=14 ng/L 02/27/2024 2:15 PM CDT LABORATORY Comment: Either a High [...] follow-up, or urgent outpatient provocative testing. Blood STRUCTURE OF LEFT UPPER LIMB / Unknown Venipuncture / Unknown 02/27/2024 1:30 PM CDT 02/27/2024 1:42 PM CDT Sobia Guzman MD LAB - BLOOD ORDERABL ES LABORATORY [facility] [address], [address] [place] [address], [facility] [phone] * Basic metabolic panel (02/27/2024 1:30 PM CDT) Sodium 141 135 - 145 mmol/L 02/27/2024 2:15 PM CDT LABORATORY Potassium 3.8 3.4 - 5.3 mmol/L 02/27/2024 2:15 PM CDT LABORATORY Chloride 105 98 - 107 mmol/L 02/27/2024 2:15 PM CDT LABORATORY Carbon Dioxide (CO2) 27 22 - 29 mmol/L 02/27/2024 2:15 PM CDT LABORATORY Anion Gap 9 7 - 15 mmol/L 02/27/2024 2:15 PM CDT LABORATORY Urea Nitrogen 11.9 8.0 - 23.0 mg/dL 02/27/2024 2:15 PM CDT LABORATORY Creatinine 0.83 0.51 - 0.95 mg/dL 02/27/2024 2:15 PM CDT LABORATORY GFR Estimate 79 >60 mL/min/1.7 3m2 02/27/2024 2:15 PM CDT LABORATORY Comment:eGFR calculated usin g 2020 CKD-EPI equation. Calcium 10.0 8.8 - 10.4 mg/dL 02/27/2024 2:15 PM CDT LABORATORY Comment:Reference intervals for this test were updated on 01/31/2024 to reflect our healthy population more accurately. There may be differences in the flagging of prior results with similar values performed with this method. Those prior results can be interpreted in the context of the updated reference intervals. Glucose 96 70 - 99 mg/dL 02/27/2024 2:15 PM CDT LABORATORY Blood STRUCTURE OF LEFT UPPER LIMB / Unknown Venipuncture / Unknown 02/27/2024 1:30 PM CDT 02/27/2024 1:42 PM CDT Sobia Guzman MD LAB - BLOOD ORDERABL ES Performing Organization Address City/[facility]/ZIP Co de Phone Number LABORATORY [facility] [address], [address] [place] [address], [facility] [phone] * Extra Purple Top Tube (02/27/2024 1:30 PM CDT) Hold Specimen [facility] 02/27/2024 2:47 PM CDT LABORATORY Blood STRUCTURE OF LEFT UPPER LIMB / Unknown Venipuncture / Unknown 02/27/2024 1:30 PM CDT 02/27/2024 1:42 PM CDT Sobia Guzman MD LAB - BLOOD ORDERABL ES Performing Organization Address City/[facility]/ZIP Co de Phone Number LABORATORY [facility] [address], [address] [place] [address], [facility] [phone] * Extra Green Top ([place] Heparin) Tube (02/27/2024 1:30 PM CDT) Hold Specimen [facility] 02/27/2024 2:47 PM CDT LABORATORY Blood STRUCTURE OF LEFT UPPER LIMB / Unknown Venipuncture / Unknown 02/27/2024 1:30 PM CDT 02/27/2024 1:42 PM CDT Sobia Guzman MD LAB - BLOOD ORDERABL ES LABORATORY [facility] [address], [address] [place] [address], [facility] [phone] * Extra Red Top Tube (02/27/2024 1:30 PM CDT) Hold Specimen [facility] 02/27/2024 2:47 PM CDT LABORATORY Blood STRUCTURE OF LEFT UPPER LIMB / Unknown Venipuncture / Unknown 02/27/2024 1:30 PM CDT 02/27/2024 1:42 PM CDT Sobia Guzman MD LAB - BLOOD ORDERABL ES LABORATORY [facility] [address], [address] [place] [address], [place] [phone] * Extra Blue Top Tube (02/27/2024 1:30 PM CDT) Hold Specimen [facility] 02/27/2024 2:47 PM CDT LABORATORY Blood STRUCTURE OF LEFT UPPER LIMB / Unknown Venipuncture / Unknown 02/27/2024 1:30 PM CDT 02/27/2024 1:42 PM CDT Sobia Guzman MD LAB - BLOOD ORDERABL ES Performing Organization Address City/[facility]/ZIP Co de Phone Number LABORATORY [facility] [address], [address] [place] [address], [place] [phone] documented in this encounter Visit Diagnoses Diagnosis Chest pain, unspecified type Hepatic steatosis Other chronic nonalcoholic liver disease Elevated blood pressure reading with diagnosis of hypertension documented in this encounter Administered Medications Inactive Administered Medications - up to 3 most recent administrations Medication Order MAR Action Action Date Dose Rate Site iopamidol (ISOVUE-370) solution 72 mL 72 mL, Intravenous, ONCE, On Tue02/27/24 at 1515, For 1 dose $Given 02/27/2024 3:16 PM CDT 72 mLs sodium chloride 0.9 % bag [address] scan flush use Intravenous, 80 mL, ONCE, On Tue02/27/24 at 1515, For 1 dose, This entry is for use by Radiology to intermittently used as a flush in patients receiving a CT scan. $Given 02/27/2024 3:16 PM CDT 80 mLs documented in this encounter Active and Recently Administered Medications Times are shown in CDT. Scheduled Medication Order 02/25/2024 02/26/2024 02/27/2024 iopamidol (ISOVUE-370) solution 72 mL (COMPLETED) 72 mL, Intravenous, ONCE, On Tue02/27/24 at 1515, For 1 dose 1516 ($Given - Provi candice: Shawn Ness) sodium chloride 0.9 % bag [address] scan flush use (COMPLETED) Intravenous, 80 mL, ONCE, On Tue02/27/24 at 1515, For 1 dose, This entry is for use by Radiology to intermittently used as a flush in patients receiving a CT scan. 1516 ($Given - Provi candice: Shawn Ness) documented in this encounter Additional Health Concerns Assessment Noted Time PHQ-9 Depression Total Score: 12 023 5:11 PM DOCUMENT ADVISOR documented as of this encounter Care Teams Body Art Technician Relationship Specialty Start Date End Date Woo Hicks PA-C [address] [place] [address] PCP - General Family Medicine 08/26/22 Melba Calderon MD [address] [place] [address] Referring Physician Family Medicine 08/04/20 Terrance Bass MD [address] [place] [address] Pulmonary Disease 08/04/20 Judson Crowder MD [id number] [place] [address] Assigned PCP 07/10/22 documented as of this encounter
[2024-04-27 08:18] LABS: PCR FLU A POSITIVE PCR FLU A (Negative); PCR FLU B Negative PCR FLU B (Negative); PCR RSV Negative PCR RSV (Negative); SARS PCR* Negative SARS-CoV-2 (Negative)
[2024-04-27 08:29] LABS: Chloride* 87 mmol/L (96-114); Potassium* 3.4 mmol/L (3.6-5.1); Sodium* 129 mmol/L (135-149)
[2024-04-27 08:32] LABS: Anion Gap 8 mEq/L (7-15); Carbon Dioxide* 34 mmol/L (20-32); Creatinine* 0.9 mg/dL (0.5-1.5); Est. Creatinine Clearance* 54.61; Estimated Glomerular Filt Rate 72 ml/min
[2024-04-27 08:33] LABS: Blood Urea Nitrogen* 20 mg/dL (7-30); Calcium* 10.4 mg/dL (8.4-10.6); D Dimer Quantitative* 0.39 ug/ml (0.00-0.50); Glucose* 103 mg/dL (60-115)
[2024-04-27 08:45] LABS: Troponin I* < 0.01 ng/mL (0.01-0.04)
[2024-04-27 09:06] VITALS: BP 122/69; PULSE 82; RESP 18
== END 2024-04-27 09:26 | disposition home or self-care (01) ==
PROVIDERS: Emergency Provider Internal Medicine
DX: E87.1 Hypo-osmolality and hyponatremia (principal); J09.X2 Influenza due to identified novel influenza A virus with other respiratory manifestations
CPT/HCPCS: 36415; 71046; 80048; 84484; 85379; 87631; 99283; 99284